=== PATIENT | female | born 1940 | race Caucasian/White ===

== ENCOUNTER 2017-02-19 19:08 | Emergency (ER) | payer OTHER, BC ==
[2017-02-19 19:20] VITALS: BMI 35.7
[2017-02-19] MEDS ORDERED: SODIUM CHLORIDE 1,000 ML IV STA (19:53)
[2017-02-19] MEDS ORDERED: diazePAM CARPU-JECT 10 MG/2 ML DISP.SYRIN IVPUSH ONE (19:54)
--- NOTE | 2017-02-19 20:08 | PDOC ---
History of Present Illness - General Chief Complaint: Pain, Acute Stated Complaint: RIGHT SIDE PAIN Time Seen by Provider: 02/19/17 19:45 History Source: Patient Exam Limitations: No Limitations - History of Present Illness Initial Comments: 02/19/17 19:57 76yo Female patient w/ PmHx: TIA, HLD presents to ED c/o left flank pain. Patient states symptoms began on Monday of last week and progressively worsened today. Family state patient received new furniture this past week and has been moving items around. But patient denies back injury. Patient denies n/v /d, cough, trauma, fall, dysuria, fever, diff breathing or any other complaints at this time. Occurred: reports: last week. denies: just prior to arrival, this morning, this afternoon, this evening, yesterday, other Severity: reports: moderate. denies: mild, severe Pain Location: reports: back. denies: none, abdomen, chest, face, head, lower extremity, mouth, neck, other, pelvis, upper extremity Method of Injury: No: unknown, assault, direct blow, fall, motor vehicle crash, other Modifying Factors: worse with: None, cold therapy, immobilization, pain medication, rest, other Associated Symptoms (Fall): shortness of breath Past History - Travel Traveled outside of the country in the last 30 days: No Close contact w/someone who was outside of country & ill: No - Past Medical History Allergies/Adverse Reactions: Allergies Allergy/AdvReac Type Severity Reaction Status Date / Time banana [Banana] Allergy Mild Vomiting Verified 02/19/17 19:20 Iodinated Contrast- Oral and Allergy Verified 02/19/17 19:20 IV Dye [Iodinated Contrast Media - IV Dye] Sulfa (Sulfonamide Allergy Verified 02/19/17 19:20 Antibiotics) [Sulfa(Sulfonamide Antibiotics)] Home Medications: Ambulatory Orders Aspirin [ASA -] 81 mg PO DAILY #0 tab.chew 09/27/14 Rosuvastatin Calcium [Crestor] 20 mg PO DAILY 06/08/15 Ciprofloxacin [Cipro -] 500 mg PO Q12H #14 tablet 03/05/16 Ibuprofen [Motrin -] 800 mg PO Q6H #20 tablet 03/05/16 Azithromycin [Zithromax -] 250 mg PO UTDICT #6 tab 11/24/16 Guaifenesin AC [Robitussin AC -] 5 ml PO TID #100 liquid MDD 20 cc 06/16/16 Pseudoephedrine HCl [Sudafed] 30 mg PO Q6H #14 tablet 06/16/16 Cephalexin [Keflex] 500 mg PO Q8H #21 capsule 02/19/17 Phenazopyridine HCl [Pyridium] 100 mg PO TID #6 tablet 02/19/17 Asthma: Yes CVA: Yes ("mini") Hypercholesterolemia: Yes Kidney Stones: Yes Suicide Attempt (Hx): No - Immunization History Immunization Up to Date: Yes - Psycho/Social/Smoking Cessation Hx Anxiety: No Suicidal Ideation: No Smoking Status: No Smoking History: Never smoked Have you smoked in the past 12 months: No Number of Cigarettes Smoked Daily: 0 If you are a former smoker, when did you quit?: 50 years Information on smoking cessation initiated: No Hx Alcohol Use: No Drug/Substance Use Hx: No Substance Use Type: None Hx Substance Use Treatment: No Trauma Specific PMHX - Complaint Specific PMHX Arthritis: No Back Injury: No Neck Injury: No Hx Sacro Iliac Joint Dysfunction: No Review of Systems - Review of Systems Able to Perform ROS?: Yes Is the patient limited Sudanese proficient: No Constitutional: No: Chills, Fever Respiratory: Yes: Shortness of Breath. No: Cough, Stridor, Wheezing Cardiac (ROS): No: Chest Pain, Palpitations, Chest Tightness ABD/GI: No: Constipated, Diarrhea, Nausea, Poor Appetite, Poor Fluid Intake, Vomiting : Yes: Flank Pain. No: Burning, Dysuria, Hematuria Musculoskeletal: Yes: Back Pain. No: Joint Pain, Neck Pain Integumentary: No: Bruising, Erythema, Rash Neurological: No: Headache, Seizure, Weakness, Dizziness All Other Systems: Reviewed and Negative *Physical Exam - Vital Signs Last Vital Signs Temp Pulse Resp BP Pulse Ox 98.7 F 79 18 173/76 99 02/19/17 19:02/19/17 19:02/19/17 19:02/19/17 19:02/19/17 19:17 - Physical Exam General Appearance: Yes: Nourished, Appropriately Dressed, Moderate Distress. No: Apparent Distress, Mild Distress, Severe Distress Neck: positive: Trachea midline, Supple. negative: Decreased range of motion, Stridor, Lymphadenopathy (R), Lymphadenopathy (L) Respiratory/Chest: positive: Lungs Clear, Normal Breath Sounds. negative: Chest Tender, Respiratory Distress, Accessory Muscle Use, Labored Respiration, Rapid RR, Rhonchi, Stridor, Wheezing Cardiovascular: positive: Regular Rhythm, Regular Rate Gastrointestinal/Abdominal: positive: Normal Bowel Sounds, Soft. negative: Distended, Guarding, Rebound, Tenderness Musculoskeletal: positive: Normal Inspection, CVA Tenderness, CVA Tenderness (L) , Decreased Range of Motion, Muscle Spasm. negative: CVA Tenderness (R), Vertebral Tenderness Extremity: positive: Normal Capillary Refill, Normal Inspection, Normal Range of Motion. negative: Pedal Edema, Swelling, Calf Tenderness, Erythema, Inflammation Integumentary: positive: Normal Color, Dry, Warm Neurologic: positive: chief compliance officer II-XII NML intact, Fully Oriented, Alert, Normal Mood/ Affect, Normal Response, Motor Strength 11/25 ED Treatment Course - LABORATORY CBC & Chemistry Diagram: 02/19/17 20:00 02/19/17 21:06 *DC/Admit/Observation/Transfer Diagnosis at time of Disposition: Urinary tract infection Qualifiers: Urinary tract infection type: acute cystitis Hematuria presence: without hematuria Qualified Code(s): N30.00 - Acute cystitis without hematuria - Discharge Dispostion Disposition: HOME Condition at time of disposition: Stable Admit: No - Prescriptions Prescriptions: Cephalexin [Keflex] 500 mg PO Q8H #21 capsule Phenazopyridine HCl [Pyridium] 100 mg PO TID #6 tablet - Patient Instructions Printed Discharge Instructions: Urinary Tract Infection Additional Instructions: Follow up with Dr. Connell this week for further evaluation. Take medications as prescribed. Drink plenty fluids, cranberry juice. Return if symptoms worsen or fever, with nausea, vomiting, and back pain. Print Language: TELUGU
[2017-02-19 20:11] LABS: BASOPHIL 0.9 % (0-2.0); EOSINOPHIL 3.7 % (0-4.5); MCH 26.8 pg (25.7-33.7); MCHC 32.1 g/dl (32.0-36.0); MEAN CELL VOLUME 83.3 fl (80-96); MEAN PLT VOLUME 8.6 fl (7.5-11.1); NEUTROPHILS 59.8 % (42.8-82.8); RDW 14.3 % (11.6-15.6); WHITE BLOOD COUNT 8.1 K/mm3 (4.0-10.0)
[2017-02-19] MEDS ORDERED: diazePAM CARPU-JECT 10 MG/2 ML DISP.SYRIN ONE (20:15)
[2017-02-19 20:35] LABS: URINE APPEARANCE CLOUDY; URINE BILIRUBIN NEGATIVE (NEGATIVE); URINE BLOOD NEGATIVE (NEGATIVE); URINE COLOR YELLOW; URINE GLUCOSE (UA) NEGATIVE (NEGATIVE); URINE KETONE NEGATIVE (NEGATIVE); URINE NITRITE NEGATIVE (NEGATIVE); URINE PROTEIN NEGATIVE (NEGATIVE); URINE UROBILINOGEN NEGATIVE mg/dL (0.2-1.0)
[2017-02-19 20:40] LABS: URINE LEUK ESTERASE 2+ (NEGATIVE)
[2017-02-19 20:41] LABS: GRANULAR CASTS 19 /lpf; URINE MUCUS RARE; URINE RBC 37 /hpf (0-3); URINE WBC 87 /hpf (3-5); YEAST FEW
[2017-02-19 20:56] LABS: PLATELET COMMENT2 UNABLE TO ENUMERATE
[2017-02-19 21:41] LABS: ALBUMIN 3.6 g/dl (3.4-5.0); ANION GAP 6 (8-16); BILIRUBIN,TOTAL 0.4 mg/dL (0.2-1.0); CALCIUM 8.6 mg/dL (8.5-10.1); CO2 28 mmol/L (21-32); GLUCOSE,RANDOM 88 mg/dL (74-106); SGOT/AST 14 U/L (15-37); SGPT/ALT 17 U/L (12-78); TOT PROT 6.2 g/dl (6.4-8.2)
[2017-02-19 21:42] LABS: ALK PHOS 54 U/L (45-117)
[2017-02-19] MEDS ORDERED: CEPHALEXIN MONOHYDRATE 500 MG CAPSULE (UD) PO ONE (21:58)
[2017-02-19] MEDS ORDERED: PHENAZOPYRIDINE HCL 100 MG TABLET (FP) PO ONE (22:00)
[2017-02-19] MEDS ORDERED: CEPHALEXIN MONOHYDRATE 250 MG CAPSULE (FP) ONE (22:02)
[2017-02-19] MEDS ORDERED: PHENAZOPYRIDINE HCL 100 MG TABLET (FP) ONE (22:02)
[2017-02-19 22:16] VITALS: BP 150/71; PULSE 70; TEMP 98
== END 2017-02-19 22:16 | disposition home or self-care (01) ==
LOC: JER 19:08
PROC: 3E033NZ Introduction of Analgesics, Hypnotics, Sedatives into Peripheral Vein, Percutaneous Approach (ICD-10-PCS; principal; 2017-02-19)
DX: N30.00 Acute cystitis without hematuria (principal); J45.909 Unspecified asthma, uncomplicated; Z86.73 Personal history of transient ischemic attack (TIA), and cerebral infarction without residual deficits; Z87.442 Personal history of urinary calculi
CPT/HCPCS: 36415; 80053; 81003; 81015; 85025; 87086; 96374; 99282-25

== ENCOUNTER 2017-06-19 09:12 | Observation (INO) | payer OTHER, BC ==
[2017-06-19 09:18] VITALS: BMI 36.1
[2017-06-19 10:06] LABS: BASOPHIL 0.8 % (0-2.0); EOSINOPHIL 3.6 % (0-4.5); MCH 27.2 pg (25.7-33.7); MCHC 32.4 g/dl (32.0-36.0); MEAN CELL VOLUME 83.9 fl (80-96); MEAN PLT VOLUME 8.1 fl (7.5-11.1); NEUTROPHILS 65.3 % (42.8-82.8); PLATELET COUNT 251 K/MM3 (134-434); RDW 14.1 % (11.6-15.6); WHITE BLOOD COUNT 6.5 K/mm3 (4.0-10.0)
[2017-06-19 10:22] LABS: INR 0.96 (0.82-1.09); PROTHROMBIN TIME (PATIENT) 10.8 SEC (9.98-11.88)
--- NOTE | 2017-06-19 10:27 | PDOC ---
History of Present Illness - History of Present Illness Initial Comments: 06/19/17 10:45 76 year old female, with significant past medical history of asthma, HTN, TIA, who presents to the emergency room complaining of 5 days of SOB and chest tightness on exertion. The patient describes the left sided chest tightness as pressure like someone is pushing on her chest that intermittently radiates to the left shoulder and left side of the neck. The pain is worse with walking and is exacerbated when taking a deep breath. She notes that the shortness of breath is different than the difficulty breathing she experiences secondary to asthma. She denies leg swelling, and recent travel. She denies recent illness. Denies fever, chills, nausea, vomiting. Denies wheezing. Allergies: iodinated contrast - Oral and IV PCP: Dr. Cox Wheel Press Operator: Dr. Strauss <Micheline Caraballo - Last Filed: 06/19/17 10:45> - General History Source: Patient, Old Records Exam Limitations: No Limitations <Amandeep Mendoza - Last Filed: 06/19/17 11:28> - General Chief Complaint: Chest Pain Stated Complaint: SOB/left side chest pain Time Seen by Provider: 06/19/17 09:32 Past History <Micheline Caraballo - Last Filed: 06/19/17 10:45> - Past Medical History Asthma: Yes CVA: Yes ("mini") COPD: No Hypercholesterolemia: Yes Kidney Stones: Yes - Immunization History Immunization Up to Date: Yes - Suicide/Smoking/Psychosocial Hx Smoking Status: No Smoking History: Never smoked Have you smoked in the past 12 months: No Number of Cigarettes Smoked Daily: 0 If you are a former smoker, when did you quit?: 50 years Information on smoking cessation initiated: No Hx Alcohol Use: No Drug/Substance Use Hx: No Substance Use Type: None Hx Substance Use Treatment: No <Amandeep Mendoza - Last Filed: 06/19/17 11:28> - Past Medical History Allergies/Adverse Reactions: Allergies Allergy/AdvReac Type Severity Reaction Status Date / Time banana [Banana] Allergy Mild Vomiting Verified 06/19/17 09:18 Iodinated Contrast- Oral and Allergy Verified 06/19/17 09:18 IV Dye [Iodinated Contrast Media - IV Dye] Sulfa (Sulfonamide Allergy Verified 06/19/17 09:18 Antibiotics) [Sulfa(Sulfonamide Antibiotics)] Home Medications: Ambulatory Orders Aspirin [ASA -] 81 mg PO DAILY #0 tab.chew 09/27/14 Rosuvastatin Calcium [Crestor] 20 mg PO DAILY 06/08/15 Ciprofloxacin [Cipro -] 500 mg PO Q12H #14 tablet 03/05/16 Ibuprofen [Motrin -] 800 mg PO Q6H #20 tablet 03/05/16 Azithromycin [Zithromax -] 250 mg PO UTDICT #6 tab 06/16/16 Guaifenesin AC [Robitussin AC -] 5 ml PO TID #100 liquid MDD 20 cc 06/16/16 Pseudoephedrine HCl [Sudafed] 30 mg PO Q6H #14 tablet 06/16/16 Cephalexin [Keflex] 500 mg PO Q8H #21 capsule 02/19/17 Phenazopyridine HCl [Pyridium] 100 mg PO TID #6 tablet 02/19/17 Review of Systems - Review of Systems Able to Perform ROS?: Yes Comments:: 06/19/17 10:45 GENERAL/CONSTITUTIONAL: No fever or chills. No weakness. HEAD, EYES, EARS, NOSE AND THROAT: No change in vision. No ear pain or discharge. No sore throat. CARDIOVASCULAR: +chest pain, SOB on exertion. RESPIRATORY: No cough, wheezing, or hemoptysis. GASTROINTESTINAL: No nausea, vomiting, diarrhea or constipation. GENITOURINARY: No dysuria, frequency, or change in urination. MUSCULOSKELETAL: No joint or muscle swelling or pain. SKIN: No rash NEUROLOGIC: No headache, vertigo, loss of consciousness, or change in strength/ sensation. ENDOCRINE: No increased thirst. No abnormal weight change. HEMATOLOGIC/LYMPHATIC: No anemia, easy bleeding, or history of blood clots. ALLERGIC/IMMUNOLOGIC: No hives or skin allergy. <Micheline Caraballo - Last Filed: 06/19/17 10:45> *Physical Exam - Vital Signs Last Vital Signs Temp Pulse Resp BP Pulse Ox 97.8 F 77 18 149/82 98 06/19/17 09:15 06/19/17 09:15 06/19/17 09:15 06/19/17 09:15 06/19/17 09:15 - Physical Exam Comments: 06/19/17 10:45 GENERAL: Awake, alert, and fully oriented, in no acute distress HEAD: No signs of trauma EYES: PERRLA, EOMI, sclera anicteric, conjunctiva clear ENT: Auricles normal inspection, hearing grossly normal, nares patent, oropharynx clear without exudates. Moist mucosa NECK: Normal ROM, supple, no lymphadenopathy, JVD, or masses LUNGS: Breath sounds equal, clear to auscultation bilaterally. No wheezes, and no crackles HEART: Regular rate and rhythm, normal S1 and S2, no murmurs, rubs or gallops ABDOMEN: Soft, nontender, normoactive bowel sounds. No guarding, no rebound. No masses EXTREMITIES: Normal range of motion, no edema. No clubbing or cyanosis. No cords, erythema, or tenderness NEUROLOGICAL: Cranial nerves II through XII grossly intact. Normal speech, normal gait SKIN: Warm, Dry, normal turgor, no rashes or lesions noted. <Micheline Caraballo - Last Filed: 06/19/17 10:45> - Vital Signs Last Vital Signs Temp Pulse Resp BP Pulse Ox 97.8 F 77 18 149/82 98 06/19/17 09:15 06/19/17 09:15 06/19/17 09:15 06/19/17 09:15 06/19/17 09:15 <Amandeep Mendoza - Last Filed: 06/19/17 11:28> Heart Score/ECG Review - History History: Highly suspicious - Electrocardiogram EKG: Non specific repolarization disturbance - Age Age: >/= 65 - Risk Factors Risk Factors Heart Score: Yes Hx Hypercholesterolemia, Yes Hx Hypertension, Yes Hx Obesity Based on the list above the patient has:: >/=3 risk factors or Hx atherosclerotic disease #1 ECG reviewed & interpreted by me at: 10:15 06/19/17 10:28 NSR 75, T wave flat III, avL, no robert/robert, QTC 455 msec <Amandeep Mendoza - Last Filed: 06/19/17 11:28> ED Treatment Course - LABORATORY CBC & Chemistry Diagram: 06/19/17 10:00 06/19/17 10:00 - ADDITIONAL ORDERS Additional order review: Laboratory Results 06/19/17 06/19/17 10:00 10:00 PT with INR 10.80 INR 0.96 PTT (Actin FS) 30.0 Sodium 142 Potassium 4.0 Chloride 108 H Carbon Dioxide 27 Anion Gap 7 L BUN 17 Creatinine 0.8 Creat Clearance w eGFR > 60 Random Glucose 99 Calcium 8.8 Magnesium 2.1 Total Bilirubin 1.0 D AST 13 L ALT 19 Alkaline Phosphatase 60 Creatine Kinase 102 Troponin I < 0.02 B-Natriuretic Peptide 225.09 Total Protein 7.1 Albumin 3.6 06/19/17 10:00 RBC 4.82 MCV 83.9 MCHC 32.4 RDW 14.1 MPV 8.1 Neutrophils % 65.3 Lymphocytes % 22.3 Monocytes % 8.0 Eosinophils % 3.6 Basophils % 0.8 <Micheline Caraballo - Last Filed: 06/19/17 10:45> - LABORATORY CBC & Chemistry Diagram: 06/19/17 10:00 06/19/17 10:00 - ADDITIONAL ORDERS Additional order review: 06/19/17 10:00 RBC 4.82 MCV 83.9 MCHC 32.4 RDW 14.1 MPV 8.1 Neutrophils % 65.3 Lymphocytes % 22.3 Monocytes % 8.0 Eosinophils % 3.6 Basophils % 0.8 - RADIOLOGY Radiology Studies Ordered: Category Date Time Status CHEST X-RAY PORTABLE* [RAD] Stat Radiology 06/19/17 09:33 Taken <Amandeep Mendoza - Last Filed: 06/19/17 11:28> Medical Decision Making - Medical Decision Making 06/19/17 10:26 A portion of this note was documented by scribe services under my direction. I have reviewed the details of the note, within reason, and agree with the documentation with the following case summary and management plan written by me. Patient treated in the ED. Nursing notes are reviewed and incorporated into the medical decision-making. Vital signs reviewed. Peripheral IV access obtained by the nurse, laboratory studies are drawn and sent, reviewed and interpreted by myself. Vital Signs Temp Pulse Resp BP Pulse Ox 97.8 F 77 18 149/82 98 06/19/17 09:15 06/19/17 09:15 06/19/17 09:15 06/19/17 09:15 06/19/17 09:15 76 year old female with past medical history of TIA, hypertension, hyperlipidemia presents with 4 days of left sternal chest pressure with radiation to left shoulder and associated dyspnea on exertion. Last echocardiogram April reportedly negative. Last stress test in 2013. Patient typically sees electric serviceman Dr. Strauss. We'll need to rule out myocardial infarction. We'll obtain chest x-ray, labs and give aspirin. Ultimate, patient admitted to the hospital for further workup and evaluation. 06/19/17 11:26 CBC, BMP 06/19/17 10:00 06/19/17 10:00 CMP Sodium 142 mmol/L (136-145) 06/19/17 10:00 Potassium 4.0 mmol/L (3.5-5.1) 06/19/17 10:00 Chloride 108 mmol/L (98-107) H 06/19/17 10:00 Carbon Dioxide 27 mmol/L (21-32) 06/19/17 10:00 Anion Gap 7 (8-16) L 06/19/17 10:00 BUN 17 mg/dL (7-18) 06/19/17 10:00 Creatinine 0.8 mg/dL (0.55-1.02) 06/19/17 10:00 Creat Clearance w eGFR > 60 (>60) 06/19/17 10:00 Random Glucose 99 mg/dL (74-106) 06/19/17 10:00 Calcium 8.8 mg/dL (8.5-10.1) 06/19/17 10:00 Magnesium 2.1 mg/dL (1.8-2.4) 06/19/17 10:00 Total Bilirubin 1.0 mg/dL (0.2-1.0) D 06/19/17 10:00 AST 13 U/L (15-37) L 06/19/17 10:00 ALT 19 U/L (12-78) 06/19/17 10:00 Alkaline Phosphatase 60 U/L (45-117) 06/19/17 10:00 Creatine Kinase 102 IU/L (26-192) 06/19/17 10:00 Troponin I < 0.02 ng/ml (0.00-0.05) 06/19/17 10:00 B-Natriuretic Peptide 225.09 pg/ml (5-450) 06/19/17 10:00 Total Protein 7.1 g/dl (6.4-8.2) 06/19/17 10:00 Albumin 3.6 g/dl (3.4-5.0) 06/19/17 10:00 Chest x-ray reviewed. No acute findings. Aspirin ordered and given. Given the circumstances, decision made to admit the patient to hospital. I've spoken to Dr. Strauss (electric serviceman). Recommends stress test today. Case discussed with Dr. Atkins Case discussed in detail with admitting physician including history, physical exam and ancillary studies. Admitting physician has assumed care for the patient, will follow all pending diagnostics and will complete the evaluation and treatment. <Amandeep Mendoza - Last Filed: 06/19/17 11:28> *DC/Admit/Observation/Transfer - Attestations Scribe Attestion: 06/19/17 10:46 Documentation prepared by BERNIE Ding, acting as medical affairs specialist for Amandeep Mendoza MD. <Micheline Caraballo - Last Filed: 06/19/17 10:45> - Discharge Dispostion Admit: Yes <Amandeep Mendoza - Last Filed: 06/19/17 11:28> Diagnosis at time of Disposition: Chest pain Qualifiers: Chest pain type: unspecified Qualified Code(s): R07.9 - Chest pain, unspecified - Discharge Dispostion Condition at time of disposition: Stable - Referrals Referrals: Tamiko Cox MD [Primary Care Provider] - - Patient Instructions - Post Discharge Activity
[2017-06-19 10:30] LABS: ALBUMIN 3.6 g/dl (3.4-5.0); ANION GAP 7 (8-16); CALCIUM 8.8 mg/dL (8.5-10.1); CO2 27 mmol/L (21-32); CREATININE 0.8 mg/dL (0.55-1.02); GLUCOSE,RANDOM 99 mg/dL (74-106); MAGNESIUM 2.1 mg/dL (1.8-2.4); SGOT/AST 13 U/L (15-37); SGPT/ALT 19 U/L (12-78); TOT PROT 7.1 g/dl (6.4-8.2)
[2017-06-19 10:33] LABS: ALK PHOS 60 U/L (45-117); CPK 102 IU/L (26-192); TROPONIN I < 0.02 ng/ml (0.00-0.05)
[2017-06-19] MEDS ORDERED: ASPIRIN 81 MG CHEWABLE TABLETS PO SCH (11:00)
[2017-06-19] MEDS ORDERED: ASPIRIN 81 MG CHEWABLE TABLETS ONE (11:15)
--- NOTE | 2017-06-19 11:48 | HP ---
Admitting History and Physical - Admission Chief Complaint: sob and chest discomfort for 4 days History of Present Illness: 06/19/17 10:45 76 year old female, with significant past medical history of asthma, HTN, TIA, who presents to the emergency room complaining of 5 days of SOB and chest tightness on exertion. The patient describes the left sided chest tightness as pressure like someone is pushing on her chest that intermittently radiates to the left shoulder and left side of the neck. The pain is worse with walking and is exacerbated when taking a deep breath. She notes that the shortness of breath is different than the difficulty breathing she experiences secondary to asthma. She denies leg swelling, and recent travel. She denies recent illness. Denies fever, chills, nausea, vomiting. Denies wheezing. Allergies: iodinated contrast - Oral and IV PCP: Dr. Cxo Telephone Order Clerk Room Service: Dr. 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 Cardiovascular: Yes: HTN, Hyperlipdemia - Smoking History Smoking history: Never smoked Have you smoked in the past 12 months: No Aproximately how many cigarettes per day: 0 If you are a former smoker, when did you quit?: 50 years - Alcohol/Substance Use Hx Alcohol Use: No Home Medications - Allergies Allergies/Adverse Reactions: Allergies Allergy/AdvReac Type Severity Reaction Status Date / Time banana [Banana] Allergy Mild Vomiting Verified 06/19/17 09:18 Iodinated Contrast- Oral and Allergy Verified 06/19/17 09:18 IV Dye [Iodinated Contrast Media - IV Dye] Sulfa (Sulfonamide Allergy Verified 06/19/17 09:18 Antibiotics) [Sulfa(Sulfonamide Antibiotics)] - Home Medications Home Medications: Ambulatory Orders Aspirin [ASA -] 81 mg PO DAILY #0 tab.chew 09/27/14 Rosuvastatin Calcium [Crestor] 20 mg PO DAILY 06/08/15 Ciprofloxacin [Cipro -] 500 mg PO Q12H #14 tablet 03/05/16 Ibuprofen [Motrin -] 800 mg PO Q6H #20 tablet 03/05/16 Azithromycin [Zithromax -] 250 mg PO UTDICT #6 tab 06/16/16 Guaifenesin AC [Robitussin AC -] 5 ml PO TID #100 liquid MDD 20 cc 06/16/16 Pseudoephedrine HCl [Sudafed] 30 mg PO Q6H #14 tablet 06/16/16 Cephalexin [Keflex] 500 mg PO Q8H #21 capsule 02/19/17 Phenazopyridine HCl [Pyridium] 100 mg PO TID #6 tablet 02/19/17 Review of Systems - Review of Systems Cardiovascular: reports: Chest Pain (on deep inspiration) Physical Examination Vital Signs: Vital Signs Temperature 97.8 F 06/19/17 09:15 Pulse Rate 77 06/19/17 09:15 Respiratory Rate 18 06/19/17 09:15 Blood Pressure 149/82 06/19/17 09:15 O2 Sat by Pulse Oximetry (%) 98 06/19/17 09:15 Constitutional: Yes: Calm Neck: Yes: Trachea Midline Cardiovascular: Yes: Regular Rate and Rhythm, S1, S2 Respiratory: Yes: CTA Bilaterally Gastrointestinal: Yes: Normal Bowel Sounds, Soft Edema: No Neurological: Yes: Alert Labs: CBC, BMP 06/19/17 10:00 06/19/17 10:00 Imaging - Results Chest X-ray: Report Reviewed Problem List - Problems (1) Atypical chest pain Assessment/Plan: observation telemetry trend CE ekg stress test cardio consult aspirin Code(s): R07.89 - OTHER CHEST PAIN (2) HLD (hyperlipidemia) Assessment/Plan: lipid panel rosuvastatin Code(s): E78.5 - HYPERLIPIDEMIA, UNSPECIFIED (3) HTN (hypertension) Assessment/Plan: monitor BP Code(s): I10 - ESSENTIAL (PRIMARY) HYPERTENSION
--- NOTE | 2017-06-19 13:36 | EKG ---
Test Reason : Blood Pressure : / mmHG Vent. Rate : 074 BPM Atrial Rate : 074 BPM P-R Int : 160 ms QRS Dur : 072 ms QT Int : 382 ms P-R-T Axes : 060 012 027 degrees QTc Int : 424 ms NORMAL SINUS RHYTHM NORMAL ECG WHEN COMPARED WITH ECG OF 26-SEP-2014 23:46, NO SIGNIFICANT CHANGE WAS FOUND Confirmed by OVI HAGEN MD ([id number]) on 06/19/2017 1:36:13 PM Referred By: Confirmed By:OVI HAGEN MD
[2017-06-19 15:02] LABS: URINE APPEARANCE CLOUDY; URINE BILIRUBIN NEGATIVE (NEGATIVE); URINE BLOOD NEGATIVE (NEGATIVE); URINE GLUCOSE (UA) NEGATIVE (NEGATIVE); URINE KETONE TRACE (NEGATIVE); URINE NITRITE NEGATIVE (NEGATIVE); URINE PROTEIN NEGATIVE (NEGATIVE); URINE UROBILINOGEN NEGATIVE mg/dL (0.2-1.0)
[2017-06-19 15:04] LABS: URINE COLOR DK YELLOW
[2017-06-19 16:56] LABS: URINE LEUK ESTERASE Negative (NEGATIVE)
[2017-06-19 16:59] LABS: CPK 97 IU/L (26-192); TROPONIN I < 0.02 ng/ml (0.00-0.05)
--- NOTE | 2017-06-19 20:24 | CON.CARD ---
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 Cardio/Vascular: Yes: HTN, Hyperlipdemia - Alcohol/Substance Use Hx Alcohol Use: No - Smoking History Smoking history: Never smoked Have you smoked in the past 12 months: No Aproximately how many cigarettes per day: 0 If you are a former smoker, when did you quit?: 50 years <Morris Strauss - Last Filed: 06/19/17 20:24> - History of Present Illness History of Present Illness: Chief Complaint: Chest pain 76 year old AA female, with history of hypercholesterolemia, admitted with 2 weeks history of left sided pressure like chest discomfort, accompanied by shortness of breath and would occur both at rest and with exertion. For the past 1 and 1/2 weeks she has been experiencing exertional left sided discomfort with exertion and radiating to the left upper extremity. She also complained of exertional dyspnea associated with chest discomfort. Symptoms recently became more frequent and prior to admission she had an episode that was more pronounced and forced her to stop. She started to walk and the chest discomfort came back till she reached home. Patient states that she was recently found to have elevated blood pressure. No history of PND or orthopnea. No history of palpitations, lightheadedness, dizziness or syncope. No history of diabetes mellitus. Patient states that she did lift some heavy objects over and has been complaining of left lateral and left posterior upper arm discomfort with movement. Past History: Hypercholesterolemia. Surgical history: 1. S/P tonsillectomy 2. S/P hysterectomy Social history: , has a living daughter, 2 children related to automobile accident and the second one apparently due to in hospital drug overdose. Patient smoked from age 13 to 40. 2 packs of cigarettes per day. Has a social drink. Family history: Father at the age of 100 of natural causes. Mother at age 94 apparently due to complications of carcinoma (uncertain type). Allergies: Banana, oral contrast, sulfa Home Medication List 1. Crestor 20 mg PO daily. Generic Name Dose Route Start Last Admin Trade Name Freq PRN Reason Stop Dose Admin Aspirin 162 mg 06/19/17 11:00 06/19/17 11:15 Asa - PO 162 mg DAILY RO Administration Aspirin 81 mg 06/20/17 10:00 Asa - PO DAILY RO Rosuvastatin Calcium 20 mg 06/19/17 22:00 Crestor - PO HS [facility] Review of Systems: Constitutional: No history of chills, fever or night sweats. No history of unintentional weight loss. HEENT: No history of headaches, diplopia, blurred vision. No history of epistaxis or hoarsness. No tinnitus. Cardiovascular: See history of present illness. Respiratory: No history of cough, expectoration of hemoptysis, no history of tuberculosis. GI: See history of present illness. No history of nausea, vomiting, melena, or hematemesis. No history of abdominal pain or discomfort. 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 No history of focal weakness. Endocrine: No history of polyuria or polydipsia. No history of intolerance to cold or warm weather. Musculoskeletal: Arthrilgias or history of myalgia. : No history of frequency or hematuria. HEME: No history of bleeding, anemia or ecchymosis. O: 76 year old obese female, was in no distress, no pallor, no cyanosis, clubbing or jaundice. Last Vital Signs Temp Pulse Resp BP Pulse Ox 98.3 F 73 18 135/70 100 06/19/17 20:30 06/19/17 20:30 06/19/17 20:30 06/19/17 20:30 06/19/17 14:31 Neck: Supple, no JVD, negative HJR, carotids were equal and upstrokes were normal, no thyromegaly appreciated. Heart: PMI was in the 5th intercostal space, no heaves or thrills, S1 and S2 were normal. Ejection systolic murmur grade II/ heard at the second right intercoastal space. No diastolic murmur or gallops were heard. Lungs: Clear on auscultation bilaterally. Chest: Point tenderness involving the left mid axillary line. Abdomen: Soft, nontender, no hepatosplenomegaly appreciated, and no palpable masses were felt. Extremities: No calf tenderness or dependent edema. Pulses are normal. Tenderness posterior aspect of the upper forearm on movement and palpation. EC06/19/17 Initial ECG 9:20am Baseline artifact with aVF missing. Sinus rhythm with non specific ST changes. Lab Data: CBCD WBC 6.5 K/mm3 (4.0-10.0) 06/19/17 10:00 RBC 4.82 M/mm3 (3.60-5.2) 06/19/17 10:00 Hgb 13.1 GM/dL (10.7-15.3) 06/19/17 10:00 Hct 40.4 % (32.4-45.2) 06/19/17 10:00 MCV 83.9 fl (80-96) 06/19/17 10:00 MCHC 32.4 g/dl (32.0-36.0) 06/19/17 10:00 RDW 14.1 % (11.6-15.6) 06/19/17 10:00 Plt Count 251 K/MM3 (134-434) 06/19/17 10:00 MPV 8.1 fl (7.5-11.1) 06/19/17 10:00 CMP Sodium 142 mmol/L (136-145) 06/19/17 10:00 Potassium 4.0 mmol/L (3.5-5.1) 06/19/17 10:00 Chloride 108 mmol/L (98-107) H 06/19/17 10:00 Carbon Dioxide 27 mmol/L (21-32) 06/19/17 10:00 Anion Gap 7 (8-16) L 06/19/17 10:00 BUN 17 mg/dL (7-18) 06/19/17 10:00 Creatinine 0.8 mg/dL (0.55-1.02) 06/19/17 10:00 Creat Clearance w eGFR > 60 (>60) 06/19/17 10:00 Calcium 8.8 mg/dL (8.5-10.1) 06/19/17 10:00 Total Bilirubin 1.0 mg/dL (0.2-1.0) D 06/19/17 10:00 AST 13 U/L (15-37) L 06/19/17 10:00 ALT 19 U/L (12-78) 06/19/17 10:00 Alkaline Phosphatase 60 U/L (45-117) 06/19/17 10:00 Total Protein 7.1 g/dl (6.4-8.2) 06/19/17 10:00 Albumin 3.6 g/dl (3.4-5.0) 06/19/17 10:00 Troponin < 0.02 06/19/17 A: 1. Chest pain syndrome, compatible with coronary artery disease, angina pectoris. 2. Hypercholesterolemia. 3. Systolic murmur compatible with aortic valve sclerosis. 4. Localized left axillary and upper extremity discomfort with movement and palpation, etiology most likely musculoskeletal. Recommendation: 1. Awaiting myoview stress test. 2. Echocardiogram. 3. Evaluation of left arm discomfort with movement (exertional chest pain proceeded the arm pain). 4. Further suggestions after evaluation of the above mentioned tests. Prognosis: Guarded Attestation: Documentation prepared by Isai Garcia, acting as medical dosimetrist for Morris Strauss MD. <Isai Garcia - Last Filed: 06/19/17 20:47> Home Medications <Morris Strauss H - Last Filed: 06/19/17 20:24> <Isai Garcia - Last Filed: 06/19/17 20:47> - Allergies Allergies/Adverse Reactions: Allergies Allergy/AdvReac Type Severity Reaction Status Date / Time banana [Banana] Allergy Mild Vomiting Verified 06/19/17 09:18 Iodinated Contrast- Oral and Allergy Verified 06/19/17 09:18 IV Dye [Iodinated Contrast Media - IV Dye] Sulfa (Sulfonamide Allergy Verified 06/19/17 09:18 Antibiotics) [Sulfa(Sulfonamide Antibiotics)] - Home Medications Home Medications: Ambulatory Orders Aspirin [ASA -] 81 mg PO DAILY #0 tab.chew 09/27/14 Rosuvastatin Calcium [Crestor] 20 mg PO DAILY 06/08/15 Vital Signs: Vital Signs Temperature 97.8 F 06/19/17 09:15 Pulse Rate 62 06/19/17 14:31 Respiratory Rate 20 06/19/17 14:31 Blood Pressure 150/63 06/19/17 14:31 O2 Sat by Pulse Oximetry (%) 100 06/19/17 14:31 - Other Data Labs, Other Data: CBC, BMP 06/19/17 10:00 06/19/17 10:00 INR, PTT INR 0.96 (0.82-1.09) 06/19/17 10:00 Troponin, BNP 06/19/17 06/19/17 10:00 16:15 Troponin I < 0.02 < 0.02 B-Natriuretic Peptide 225.09 Troponin, BNP 06/19/17 06/19/17 10:00 16:15 Troponin I < 0.02 < 0.02 B-Natriuretic Peptide 225.09 <Morris Strauss - Last Filed: 06/19/17 20:24> Vital Signs: Vital Signs Temperature 97.8 F 06/19/17 09:15 Pulse Rate 62 06/19/17 14:31 Respiratory Rate 20 06/19/17 14:31 Blood Pressure 150/63 06/19/17 14:31 O2 Sat by Pulse Oximetry (%) 100 06/19/17 14:31 - Other Data Labs, Other Data: CBC, BMP 06/19/17 10:00 06/19/17 10:00 INR, PTT INR 0.96 (0.82-1.09) 06/19/17 10:00 Troponin, BNP 06/19/17 06/19/17 10:00 16:15 Troponin I < 0.02 < 0.02 B-Natriuretic Peptide 225.09 Troponin, BNP 06/19/17 06/19/17 10:00 16:15 Troponin I < 0.02 < 0.02 B-Natriuretic Peptide 225.09 <Isai Garcia - Last Filed: 06/19/17 20:47>
[2017-06-19] MEDS: ROSUVASTATIN CA 20 MG TABLET (FP) PO SCH (21:47)
[2017-06-20 07:16] LABS: ANION GAP 8 (8-16); BILIRUBIN,TOTAL 0.7 mg/dL (0.2-1.0); CALCIUM 8.3 mg/dL (8.5-10.1); CO2 25 mmol/L (21-32); CREATININE 0.6 mg/dL (0.55-1.02); GLUCOSE,RANDOM 82 mg/dL (74-106); SGOT/AST 10 U/L (15-37); SGPT/ALT 16 U/L (12-78); TOT PROT 5.9 g/dl (6.4-8.2)
[2017-06-20 07:24] LABS: ALK PHOS 49 U/L (45-117); TROPONIN I < 0.02 ng/ml (0.00-0.05)
[2017-06-20 07:35] LABS: BASOPHIL 1.1 % (0-2.0); EOSINOPHIL 5.8 % (0-4.5); MCH 27.5 pg (25.7-33.7); MCHC 33.1 g/dl (32.0-36.0); MEAN CELL VOLUME 82.9 fl (80-96); MEAN PLT VOLUME 8.7 fl (7.5-11.1); NEUTROPHILS 51.2 % (42.8-82.8); PLATELET COUNT 215 K/MM3 (134-434); RDW 13.5 % (11.6-15.6); WHITE BLOOD COUNT 4.7 K/mm3 (4.0-10.0)
[2017-06-20] MEDS ORDERED: amLODIPine BESYLATE 5 MG TABLET (FP) PO ONE (08:26)
--- NOTE | 2017-06-20 08:29 | PN ---
Progress Note, Physician History of Present Illness: INTERMITTENT CHEST HEAVINESS - Current Medication List Current Medications: Active Medications Amlodipine Besylate (Norvasc -) 5 mg PO ONCE ONE Stop: 06/20/17 08:27 Aspirin (Asa -) 81 mg PO DAILY RO Rosuvastatin Calcium (Crestor -) 20 mg PO HS RO Last Admin: 06/19/17 21:47 Dose: Not Given - Objective Vital Signs: Vital Signs Temperature 98.2 F 06/20/17 06:00 Pulse Rate 69 06/20/17 06:00 Respiratory Rate 19 06/20/17 06:00 Blood Pressure 132/74 06/20/17 06:00 O2 Sat by Pulse Oximetry (%) 98 06/19/17 22:00 Cardiovascular: Yes: Regular Rate and Rhythm Respiratory: Yes: Regular, CTA Bilaterally Gastrointestinal: Yes: Normal Bowel Sounds, Soft Labs: CBC, BMP 06/20/17 06:30 INR, PTT INR 0.96 (0.82-1.09) 06/19/17 10:00 Problem List - Problems (1) Chest pain Assessment/Plan: telemetry trend CE ekg stress test cardio consult noted and appreciated aspirin Code(s): R07.9 - CHEST PAIN, UNSPECIFIED Qualifiers: Chest pain type: unspecified Qualified Code(s): R07.9 - Chest pain, unspecified (2) HLD (hyperlipidemia) Assessment/Plan: on statin Code(s): E78.5 - HYPERLIPIDEMIA, UNSPECIFIED (3) HTN (hypertension) Assessment/Plan: give norvasc 5 mg x1 will decide on choice of meds after stress Code(s): I10 - ESSENTIAL (PRIMARY) HYPERTENSION
[2017-06-20 08:50] LABS: CHOLESTEROL 144 mg/dL (50-200)
[2017-06-20] MEDS: ASPIRIN 81 MG CHEWABLE TABLETS PO SCH (09:12)
--- NOTE | 2017-06-20 10:26 | EKG ---
Test Reason : Blood Pressure : / mmHG Vent. Rate : 059 BPM Atrial Rate : 059 BPM P-R Int : 168 ms QRS Dur : 084 ms QT Int : 428 ms P-R-T Axes : 045 016 015 degrees QTc Int : 423 ms SINUS BRADYCARDIA WITH PREMATURE ATRIAL COMPLEXES OTHERWISE NORMAL ECG WHEN COMPARED WITH ECG OF 19-JUN-2017 09:20, PREMATURE ATRIAL COMPLEXES ARE NOW PRESENT Confirmed by BARAK HONEYCUTT, TARIQ ([id number]) on 06/20/2017 10:26:22 AM Referred By: Norbert BURROUGHS Confirmed By:TARIQ CANCINO MD
[2017-06-20] MEDS ORDERED: DEXTROSE 5% IVPB ONE (10:30)
[2017-06-20] MEDS ORDERED: WATER IVPB ONE (10:30)
[2017-06-20] MEDS ORDERED: DIPYRIDAMOLE STRESS TEST IVPB ONE (10:30)
--- NOTE | 2017-06-20 11:37 | PN ---
Progress Note (short form) - Note Progress Note: 76 year AA female admitted with exertional chest pain associated with dyspnea, h/o of hypercholesterolemia. No recurrence of chest pain or discomfort since admission, scheduled fo myoview ETT. Active Medications Aspirin (Asa -) 81 mg PO DAILY [facility] Last Admin: 06/20/17 09:12 Dose: 81 mg Rosuvastatin Calcium (Crestor -) 20 mg PO HS [facility] Last Admin: 06/19/17 21:47 Dose: Not Given 76 year female in no distress, no pallor or cyanosis. Last Vital Signs Temp Pulse Resp BP Pulse Ox 98.3 F 63 18 141/72 98 06/20/17 08:00 06/20/17 08:00 06/20/17 08:00 06/20/17 08:00 06/19/17 22:00 NECK; Supple, no JVD, carotids equal, no bruits. HEART: PMI in the 5th ICS, S1 & S2 are normal, NASRA grade II/ at the 2nd ICS, ending in early space. No diastolic murmur or gallops heard. LUNGS: Clear on auscultation. Abdomen. Soft, obese and nontender. No organomegaly or masses felt. EXTREMITIES: No calf tenderness or dependent edema. CBC, BMP 06/20/17 06:30 06/20/17 06:30 Troponin, BNP 06/19/17 06/20/17 16:15 06:30 Troponin I < 0.02 < 0.02 A: 1. Chest pain syndrome compatible with CAD, angina pectoris. 2. Hypercholesterolemia. 3. Exogenous obesity. 4. Systolic murmur compatible with aortic valve sclerosis P: 1. Myoview ETT. 2. Echocardiogram. 3. Risk modifications. 4. Further suggestions will depend upon the results of the above mentiomed tests.
[2017-06-20] MEDS: ROSUVASTATIN CA 20 MG TABLET (FP) PO SCH (21:03)
--- NOTE | 2017-06-21 08:37 | DS ---
Physical Examination Vital Signs: Vital Signs Temperature 98.6 F 06/21/17 06:00 Pulse Rate 70 06/21/17 06:00 Respiratory Rate 18 06/21/17 06:00 Blood Pressure 118/73 06/21/17 06:00 O2 Sat by Pulse Oximetry (%) 99 06/20/17 21:00 Cardiovascular: Yes: Regular Rate and Rhythm Respiratory: Yes: Regular, CTA Bilaterally Gastrointestinal: Yes: Normal Bowel Sounds, Soft Labs: CBC, BMP 06/20/17 06:30 06/20/17 06:30 Discharge Summary Reason For Visit: CHEST PAIN Current Active Problems Chest pain (Acute) Hospital Course: 76 year old female, with significant past medical history of asthma, HTN, TIA, who presents to the emergency room complaining of 5 days of SOB and chest tightness on exertion. The patient describes the left sided chest tightness as pressure like someone is pushing on her chest that intermittently radiates to the left shoulder and left side of the neck. The pain is worse with walking and is exacerbated when taking a deep breath. She notes that the shortness of breath is different than the difficulty breathing she experiences secondary to asthma. She denies leg swelling, and recent travel. She denies recent illness. Denies fever, chills, nausea, vomiting. Denies wheezing. 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 Cardiovascular: Yes: HTN, Hyperlipdemia Pateint was admitted and cardiac enzymes were negative she was evaluated by cardiology and had stress test which showed mild ischemia pt doing well toprol was added and pt for dc home if cleared by cardio Condition: Improved - Instructions Referrals: Tamiko Cox MD [Primary Care Provider] - 2 Weeks Morris Strauss MD [Staff Physician] - Disposition: HOME - Home Medications Comprehensive Discharge Medication List: Ambulatory Orders Aspirin [ASA -] 81 mg PO DAILY #0 tab.chew 09/27/14 Rosuvastatin Calcium [Crestor] 20 mg PO DAILY 06/08/15 Metoprolol Succinate [Toprol XL -] 12.5 mg PO DAILY #30 tab.sr.24h 06/21/17
[2017-06-21] MEDS ORDERED: METOPROLOL SUCCINATE 25 MG TAB.SR.24H (FP) PO SCH (09:15)
[2017-06-21] MEDS: ASPIRIN 81 MG CHEWABLE TABLETS PO SCH (09:17)
[2017-06-21] MEDS ORDERED: METOPROLOL SUCCINATE 25 MG TAB.SR.24H (FP) PO ONE (13:30)
[2017-06-21 15:01] VITALS: BP 146/78; PULSE 81; TEMP 98.2
[2017-06-22] MEDS ORDERED: METOPROLOL SUCCINATE 25 MG TAB.SR.24H (FP) PO SCH (10:00)
== END 2017-06-21 17:51 | disposition home or self-care (01) ==
LOC: JER 09:12 → JERBED 11:29 → J4W 20:50
PROVIDERS: ADMIT Student in an Organized Health Care Education/Training Program; ATTEND Student in an Organized Health Care Education/Training Program
PROC: 3E033GC Introduction of Other Therapeutic Substance into Peripheral Vein, Percutaneous Approach (ICD-10-PCS; principal; 2017-06-19)
DX: R07.89 Other chest pain (principal); I10 Essential (primary) hypertension; E78.5 Hyperlipidemia, unspecified; J45.909 Unspecified asthma, uncomplicated; Z79.82 Long term (current) use of aspirin; Z87.442 Personal history of urinary calculi; Z86.73 Personal history of transient ischemic attack (TIA), and cerebral infarction without residual deficits; Z91.018 Allergy to other foods; Z88.2 Allergy status to sulfonamides; Z91.041 Radiographic dye allergy status; E66.09 Other obesity due to excess calories; Z68.36 Body mass index [BMI] 36.0-36.9, adult; R01.1 Cardiac murmur, unspecified
CPT/HCPCS: 36415; 71010-TC; 78452-TC; 80053; 80061; 81003; 82550; 83036; 83721; 83735; 83880; 84443; 84484; 85025; 85610; 85730; 93005; 93010; 93017; 93306-TC; 96374; 99284-25; A9502; C1887; G0378

== ENCOUNTER 2017-10-05 05:45 | Emergency (ER) | payer OTHER, BC ==
[2017-10-05 06:09] VITALS: BMI 32.0
--- NOTE | 2017-10-05 06:11 | PDOC ---
History of Present Illness - General Chief Complaint: Shortness of Breath Stated Complaint: SOB, HEADACHE Time Seen by Provider: 10/05/17 06:11 History Source: Patient - History of Present Illness Initial Comments: 10/05/17 06:26 76-year-old female complaining of chest discomfort, headache and shortness of breath upon awakening this morning. Patient reports that she has a history of hypertension, hypercholesterolemia, CVA, asthma as a child. Kidney stones.. She had a cardiac catheterization One week ago reports that she has 20% blockage in 2 arteries. Patient at this time reports chest discomfort and headache Past History - Past Medical History Allergies/Adverse Reactions: Allergies Allergy/AdvReac Type Severity Reaction Status Date / Time banana [Banana] Allergy Mild Vomiting Verified 10/05/17 06:06 Iodinated Contrast- Oral and Allergy Verified 10/05/17 06:06 IV Dye [Iodinated Contrast Media - IV Dye] Sulfa (Sulfonamide Allergy Verified 10/05/17 06:06 Antibiotics) [Sulfa(Sulfonamide Antibiotics)] Home Medications: Ambulatory Orders Aspirin [ASA -] 81 mg PO DAILY #0 tab.chew 09/27/14 Rosuvastatin Calcium [Crestor] 5 mg PO DAILY 06/08/15 Cholecalciferol (Vitamin D3) [Vitamin D3] 5,000 unit PO DAILY 09/12/17 Metoprolol Succinate [Toprol XL -] 50 mg PO DAILY 09/12/17 Ranolazine [Ranexa] 500 mg PO DAILY 09/12/17 Asthma: Yes CVA: Yes ("mini") COPD: No DVT: No Dementia: No HTN: Yes Hypercholesterolemia: Yes Kidney Stones: Yes - Immunization History Immunization Up to Date: Yes - Suicide/Smoking/Psychosocial Hx Smoking Status: No Smoking History: Never smoked Have you smoked in the past 12 months: No Number of Cigarettes Smoked Daily: 0 If you are a former smoker, when did you quit?: 30 years ago Information on smoking cessation initiated: No Hx Alcohol Use: No Drug/Substance Use Hx: No Substance Use Type: None Hx Substance Use Treatment: No Review of Systems - Review of Systems Able to Perform ROS?: Yes Is the patient limited Mohawk proficient: No Constitutional: No: Symptoms Reported, See HPI, Chills, Diaphoresis, Fever, Loss of Appetite, Malaise, Night Sweats, Weakness, Weight Stable, Unintentional Wgt. Loss, Unexplained wgt Loss, Other Respiratory: Yes: SOB at Rest. No: Symptoms reported, See HPI, Cough, Orthopnea , Shortness of Breath, SOB with Exertion, Stridor, Wheezing, Productive cough, Hemoptysis, Other Cardiac (ROS): Yes: Chest Pain. No: Symptoms Reported, See HPI, Edema, Irregular Heart Rate, Lightheadedness, Palpitations, Syncope, Chest Tightness, Other Neurological: Yes: Headache. No: Symptoms reported, See HPI, Numbness, Paresthesia, Pre-Existing Deficit, Seizure, Tingling, Tremors, Weakness, Unsteady Gait, Ataxia, Dizziness, Other *Physical Exam - Vital Signs Last Vital Signs Temp Pulse Resp BP Pulse Ox 99.2 F 68 18 130/64 100 10/05/17 06:06 10/05/17 06:06 10/05/17 06:06 10/05/17 06:06 10/05/17 06:06 - Physical Exam General Appearance: Yes: Appropriately Dressed HEENT: positive: Normal ENT Inspection Respiratory/Chest: positive: Lungs Clear, Normal Breath Sounds Cardiovascular: positive: Regular Rhythm, Regular Rate, S1, S2 Gastrointestinal/Abdominal: positive: Normal Bowel Sounds, Soft Musculoskeletal: positive: Normal Inspection Extremity: positive: Normal Capillary Refill, Normal Inspection, Normal Range of Motion Integumentary: positive: Normal Color, Dry, Warm Neurologic: 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: 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-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 NML intact, Fully Oriented, Alert, Normal Mood/ Affect, Normal Response, Motor Strength 5/5, Finger to Nose (intact) Heart Score/ECG Review - ECG Intrepretation Rhythm: Regular Rhythm Comment:: 10/05/17 06:32 NSR: 68bpm ED Treatment Course - LABORATORY CBC & Chemistry Diagram: 10/05/17 06:30 10/05/17 06:30 Medical Decision Making - Medical Decision Making 10/05/17 06:28 A: Chest pain P: CBC CMP cardiac enzymes chest xray EKG 10/05/17 07:06 patient signed out to Ileana BEEBE *DC/Admit/Observation/Transfer Diagnosis at time of Disposition: Chest pain Qualifiers: Chest pain type: unspecified Qualified Code(s): R07.9 - Chest pain, unspecified - Referrals - Patient Instructions - Post Discharge Activity
--- NOTE | 2017-10-05 06:44 | PDOC ---
*Physical Exam - Vital Signs Last Vital Signs Temp Pulse Resp BP Pulse Ox 99.2 F 68 18 130/64 100 10/05/17 06:06 10/05/17 06:06 10/05/17 06:06 10/05/17 06:06 10/05/17 06:06 ED Treatment Course - LABORATORY CBC & Chemistry Diagram: 10/05/17 06:30 10/05/17 06:30 Medical Decision Making - Medical Decision Making 10/05/17 06:43 agree with care from CONCEPCIÓN Cintron *DC/Admit/Observation/Transfer Diagnosis at time of Disposition: Chest pain Qualifiers: Chest pain type: unspecified Qualified Code(s): R07.9 - Chest pain, unspecified - Referrals - Patient Instructions - Post Discharge Activity
[2017-10-05 07:15] LABS: ALBUMIN 3.3 g/dl (3.4-5.0); ANION GAP 12 (8-16); BLOOD UREA NITROGEN 15 mg/dL (7-18); CALCIUM 8.7 mg/dL (8.5-10.1); CHLORIDE 111 mmol/L (98-107); CO2 21 mmol/L (21-32); GLUCOSE,RANDOM 95 mg/dL (74-106); MAGNESIUM 2.1 mg/dL (1.8-2.4); POTASSIUM 4.2 mmol/L (3.5-5.1); SODIUM 144 mmol/L (136-145)
[2017-10-05 07:16] LABS: INR 0.92 (0.82-1.09); PROTHROMBIN TIME (PATIENT) 10.4 SEC (9.98-11.88)
[2017-10-05 07:22] LABS: ALK PHOS 51 U/L (45-117); BILIRUBIN,TOTAL 0.6 mg/dL (0.2-1.0); SGOT/AST 17 U/L (15-37); SGPT/ALT 15 U/L (12-78); TOT PROT 6.4 g/dl (6.4-8.2)
[2017-10-05 07:28] LABS: BASO % 1.2 % (0-2.0); EOS % 6.2 % (0-4.5); HEMATOCRIT 35.9 % (32.4-45.2); LYMPH % 19.4 % (8-40); MCH 28.3 pg (25.7-33.7); MCHC 33.5 g/dl (32.0-36.0); MEAN CELL VOLUME 84.6 fl (80-96); MEAN PLT VOLUME 9.1 fl (7.5-11.1); MONO % 10.5 % (3.8-10.2); NEUT % 62.7 % (42.8-82.8); PLATELET COUNT 184 K/MM3 (134-434); RBC 4.24 M/mm3 (3.60-5.2); RDW 14.2 % (11.6-15.6); WHITE BLOOD COUNT 7.2 K/mm3 (4.0-10.0)
--- NOTE | 2017-10-05 08:18 | PDOC ---
*Physical Exam - Vital Signs Last Vital Signs Temp Pulse Resp BP Pulse Ox 99.2 F 68 18 130/64 100 10/05/17 06:06 10/05/17 06:06 10/05/17 06:06 10/05/17 06:06 10/05/17 06:06 Heart Score/ECG Review #2 General ECG Interpretation: Sinus Rhythm (sinus rhythm at 62.Noted PVC and PAC occasionally. No acute changes) ED Treatment Course - LABORATORY CBC & Chemistry Diagram: 10/05/17 06:30 10/05/17 06:30 - ADDITIONAL ORDERS Additional order review: Laboratory Results 10/05/17 10/05/17 06:30 06:30 PT with INR 10.40 INR 0.92 Sodium 144 Potassium 4.2 Chloride 111 H Carbon Dioxide 21 Anion Gap 12 BUN 15 Creatinine 1.0 Creat Clearance w eGFR 53.91 Random Glucose 95 Calcium 8.7 Magnesium 2.1 Total Bilirubin 0.6 D AST 17 ALT 15 Alkaline Phosphatase 51 Creatine Kinase 69 Troponin I < 0.02 Total Protein 6.4 Albumin 3.3 L 10/05/17 06:30 RBC 4.24 MCV 84.6 MCHC 33.5 RDW 14.2 MPV 9.1 Neutrophils % 62.7 Lymphocytes % 19.4 Monocytes % 10.5 H D Eosinophils % 6.2 H D Basophils % 1.2 D Medical Decision Making - Medical Decision Making 10/05/17 07:18 Patient received in sign out from CONCEPCIÓN Cintron. Patient here with complaints of midsternal chest tightness, generalized throbbing headache along with shortness of breath. Patient recently had a cardiac catheterization done a week ago which showed 20% blockage in 2 arteries. Patient was given aspirin upon arrival. Patient upon my assessment was asymptomatic. Explained to patient that she will have a second set of cardiac enzymes drawn and will consult patient's senior receptionist Dr. Araiza. Vital signs stable. Patient in route for chest x-ray. 10/05/17 10:18 chest x-ray negative. Head CT negative for acute intracranial hemorrhage, edema or midline shift mass effect or skull fracture. Patient will await second troponin. otherwise is asymptomatic and smiling arrival. 10/05/17 11:05 Laboratory Tests 10/05/17 10/05/17 10/05/17 06:30 06:30 06:30 WBC 7.2 D Hgb 12.0 Hct 35.9 Plt Count 184 Neutrophils % 62.7 PT with INR 10.40 INR 0.92 Sodium 144 Potassium 4.2 Carbon Dioxide 21 Anion Gap 12 BUN 15 Creatinine 1.0 Creat Clearance w eGFR 53.91 Random Glucose 95 Calcium 8.7 Magnesium 2.1 Total Bilirubin 0.6 D AST 17 ALT 15 Creatine Kinase 69 Troponin I < 0.02 Albumin 3.3 L 10/05/17 10:44 WBC Hgb Hct Plt Count Neutrophils % PT with INR INR Sodium Potassium Carbon Dioxide Anion Gap BUN Creatinine Creat Clearance w eGFR Random Glucose Calcium Magnesium Total Bilirubin AST ALT Creatine Kinase Pending Troponin I Pending Albumin 10/05/17 14:12 Laboratory Tests 10/05/17 10:44 Creatine Kinase 65 Troponin I < 0.02 10/05/17 14:13 Laboratory Tests 10/05/17 10:44 Creatine Kinase 65 Troponin I < 0.02 Pt awaiting CTA since she required medication prior to CAT scan secondary to allergy to IV contrast dye. 10/05/17 17:19 No evidence of pulmonary artery embolus pneumonia. The heart is mildly enlarged with no pericardial effusion. Normal caliber thoracic aorta thoracic aorta suboptimally opacified evaluation for dissection. Patient will be discharged home to follow-up with Dr. Strauss. Patient remains asymptomatic and has been ambulatory within the ED. 10/05/17 17:20 Selected Entries 10/05/17 11:27 Temperature 98.9 F Pulse Rate [ 67 Left Apical] Respiratory 16 Rate Blood Pressure 128/61 [Left Arm] O2 Sat by Pulse 100 Oximetry (%) *DC/Admit/Observation/Transfer Diagnosis at time of Disposition: Chest pain Qualifiers: Chest pain type: unspecified Qualified Code(s): R07.9 - Chest pain, unspecified - Discharge Dispostion Disposition: HOME Condition at time of disposition: Improved - Referrals Referrals: Tamiko Cox MD [Primary Care Provider] - Morris Strauss MD [Staff Physician] - - Patient Instructions Printed Discharge Instructions: DI for Chest Pain Additional Instructions: Please continue to take your medication as previously prescribed. Please follow-up with Dr. Strauss as he is aware of today's visit. please return to the ED at any given time if your symptoms return or worsen. - Post Discharge Activity
[2017-10-05] MEDS ORDERED: ASPIRIN 81 MG CHEWABLE TABLETS PO SCH (10:00)
[2017-10-05] MEDS ORDERED: ASPIRIN 81 MG CHEWABLE TABLETS ONE (10:21)
[2017-10-05 11:28] VITALS: BP 128/61; PULSE 67; TEMP 98.9
[2017-10-05] MEDS ORDERED: FAMOTIDINE IV 20 MG/12 ML VIAL IVPUSH ONE (11:58)
[2017-10-05] MEDS ORDERED: methylPREDNISolone NA SUCC 125 MG/2 ML VIAL IVPB ONE (11:58)
[2017-10-05] MEDS ORDERED: methylPREDNISolone NA SUCC 125 MG/2 ML VIAL ONE (12:08)
[2017-10-05] MEDS ORDERED: FAMOTIDINE 20 MG/50 ML IVPB 20 MG/50 ML MG IVPB ONE (12:08)
--- NOTE | 2017-10-05 16:35 | EKG ---
Test Reason : Blood Pressure : / mmHG Vent. Rate : 068 BPM Atrial Rate : 068 BPM P-R Int : 160 ms QRS Dur : 068 ms QT Int : 382 ms P-R-T Axes : 024 012 019 degrees QTc Int : 406 ms NORMAL SINUS RHYTHM NORMAL ECG WHEN COMPARED WITH ECG OF 12-SEP-2017 15:25, NO SIGNIFICANT CHANGE WAS FOUND Confirmed by INDIA BENDER MD ([id number]) on 10/05/2017 4:34:40 PM Referred By: Confirmed By:INDIA BENDER MD
--- NOTE | 2017-10-06 15:04 | EKG ---
Test Reason : Blood Pressure : / mmHG Vent. Rate : 062 BPM Atrial Rate : 062 BPM P-R Int : 156 ms QRS Dur : 080 ms QT Int : 416 ms P-R-T Axes : 022 018 018 degrees QTc Int : 422 ms SINUS RHYTHM WITH OCCASIONAL PREMATURE VENTRICULAR COMPLEXES AND PREMATURE ATRIAL COMPLEXES Confirmed by YEISON LOPEZ MD ([id number]) on 10/06/2017 3:04:05 PM Referred By: Confirmed By:YEISON LOPEZ MD
== END 2017-10-05 17:38 | disposition home or self-care (01) ==
LOC: JER 05:45
PROC: 3E033GC Introduction of Other Therapeutic Substance into Peripheral Vein, Percutaneous Approach (ICD-10-PCS; principal; 2017-10-05)
PROC: 3E033GC Introduction of Other Therapeutic Substance into Peripheral Vein, Percutaneous Approach (ICD-10-PCS; 2017-10-05)
PROC: 3E0333Z Introduction of Anti-inflammatory into Peripheral Vein, Percutaneous Approach (ICD-10-PCS; 2017-10-05)
DX: R07.89 Other chest pain (principal); Z98.61 Coronary angioplasty status
CPT/HCPCS: 36415; 70450-TC; 71046-TC-FY; 71275-TC; 80053; 82550; 83735; 84484; 85025; 85610; 93005; 93010; 99284-25

== ENCOUNTER 2017-10-19 10:53 | Emergency (ER) | payer OTHER, BC ==
[2017-10-19 11:02] VITALS: TEMP 98.1; BMI 34.3
--- NOTE | 2017-10-19 11:21 | PDOC ---
History of Present Illness - General Chief Complaint: Chest Pain Stated Complaint: CHEST PAIN History Source: Patient Exam Limitations: No Limitations - History of Present Illness Initial Comments: 10/19/17 12:37 76 year old female with pmhx of angina, TIA, HTN, HLD, and spinal stenosis presents with 2 days of left sided neck pain radiating to her left shoulder and left lower chest. Patient states that the pain started at 11am yesterday and is sharp in quality, 9/10 in severity. Patient states that the pain is intermittent. Patient states that the pain is worse with inspiration and movement and lasts for a few seconds. Patient reports associated SOB, palpitations, some nausea but denies vomiting or diaphoresis. Patient reports history of spinal stenosis in the cervical region and lower thoracic region and had physical therapy treatment before. Patient also reports left lateral thigh pain that is 4/10 in severity, non-radiating and is dull in quality. Patient states that the thigh pain also started 2 days ago. Patient also reports recent chills and nasal congestion, cold sx last week. Patient states that she was at the hospital 2 weeks ago for chest pain, CTA was negative for PE and was transferred for catheter tertiary facility. Patient denies fever, headache, blurry vision, ringing in ears, sore throat, rhinorrhea, abdominal pain, vomiting, diarrhea, constipation, dysuria, hematuria. PMD: Dr. Tamiko Cox Fabric Sourcer: Dr. 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 Heart: RRR without MRG Lungs: CTA B/L Abdomen: obese, soft, ND/NT, BS present Neuro: CN II-XII grossly intact, no focal neuro deficit, normal speech, face was symmetrical, sensation intact Psych: normal mood and affect MSK: 5/5 strength in upper and lower extremities B/L, sensation intact in upper and lower extremities B/L, DP pulse 2+ B/L, trace edema on left leg, +1 edema on right leg, tenderness to palpation in left lower ribs, tenderness to palpation in left shoulder, FROM in shoulder B/L Skin: warm and dry Differential Diagnosis: * Musculoskeletal/ costochondritis * r/o PA * r/o pna * r/o pneumothorax Workup: * CBC, CMP, Mg, PT, PTT * Cardiac profile, BNP * Chest xray * IV Tylenol 1000 mg * ASA chewable 162 mg once * 2L of O2 via NC * EKG showed normal sinus rhythm, with rate at 72 bpm, normal QRS duration, no axis deviation, no ST elevation or depression 10/19/17 12:55 10/19/17 12:57 10/19/17 12:58 Past History - Past Medical History Allergies/Adverse Reactions: Allergies Allergy/AdvReac Type Severity Reaction Status Date / Time banana [Banana] Allergy Mild Vomiting Verified 10/19/17 10:58 Iodinated Contrast- Oral and Allergy Verified 10/19/17 10:58 IV Dye [Iodinated Contrast Media - IV Dye] Sulfa (Sulfonamide Allergy Verified 10/19/17 10:58 Antibiotics) [Sulfa(Sulfonamide Antibiotics)] Home Medications: Ambulatory Orders Rosuvastatin Calcium [Crestor] 5 mg PO DAILY 06/08/15 Metoprolol Succinate [Toprol XL -] 50 mg PO DAILY 09/12/17 Aspirin [ASA -] 325 mg PO DAILY 10/19/17 Asthma: Yes CVA: Yes ("mini") COPD: No DVT: No Dementia: No HTN: Yes Hypercholesterolemia: Yes Kidney Stones: Yes - Immunization History Immunization Up to Date: Yes - Suicide/Smoking/Psychosocial Hx Smoking Status: No Smoking History: Former smoker Have you smoked in the past 12 months: No Number of Cigarettes Smoked Daily: 0 If you are a former smoker, when did you quit?: 30 years ago Information on smoking cessation initiated: No Hx Alcohol Use: No Drug/Substance Use Hx: No Substance Use Type: None Hx Substance Use Treatment: No *Physical Exam - Vital Signs Last Vital Signs Temp Pulse Resp BP Pulse Ox 98.1 F 80 19 138/69 100 10/19/17 10:58 10/19/17 10:58 10/19/17 10:58 10/19/17 10:58 10/19/17 10:58 ED Treatment Course - LABORATORY CBC & Chemistry Diagram: 10/19/17 12:30 10/19/17 12:30 *DC/Admit/Observation/Transfer Diagnosis at time of Disposition: Musculoskeletal chest pain - Discharge Dispostion Disposition: HOME Admit: No - Referrals - Patient Instructions Printed Discharge Instructions: DI for Atypical Chest Pain Additional Instructions: You presented to the Emergency Department for left sided neck pain, shoulder pain and left sided chest pain. The workup came back negative. EKG, chest xray and lab work were negative for any cardiac or pulmonary etiologies of chest pain. The pain most likely is due to musculoskeletal reasons. You will be sent home. You can use Aleve for pain as needed for pain. Please resume the rest of your medications. Please follow up with you primary care doctor and your station cashier, Dr. Araiza. If you develop worsening chest pain or shortness of breath you can return to the emergency department. - Post Discharge Activity
[2017-10-19] MEDS ORDERED: ASPIRIN 81 MG CHEWABLE TABLETS PO ONE (11:56)
[2017-10-19] MEDS ORDERED: ACETAMINOPHEN 1000 MG/100 ML VIAL (NON FORMULARY) IVPB ONE (11:57)
[2017-10-19] MEDS ORDERED: ACETAMINOPHEN INJECTION 100 ML IVPB ONE (12:22)
[2017-10-19] MEDS ORDERED: ASPIRIN 81 MG CHEWABLE TABLETS ONE (12:22)
[2017-10-19 12:41] LABS: BASO % 0.7 % (0-2.0); EOS % 1.6 % (0-4.5); HEMATOCRIT 35.3 % (32.4-45.2); HEMOGLOBIN 11.7 GM/dL (10.7-15.3); LYMPH % 15.5 % (8-40); MCHC 33.1 g/dl (32.0-36.0); MEAN CELL VOLUME 84.5 fl (80-96); MEAN PLT VOLUME 7.7 fl (7.5-11.1); MONO % 10.5 % (3.8-10.2); NEUT % 71.7 % (42.8-82.8); PLATELET COUNT 194 K/MM3 (134-434); RBC 4.17 M/mm3 (3.60-5.2); RDW 14.7 % (11.6-15.6); WHITE BLOOD COUNT 8.4 K/mm3 (4.0-10.0)
[2017-10-19 13:00] LABS: INR 1.03 (0.82-1.09); PROTHROMBIN TIME (PATIENT) 11.6 SEC (9.98-11.88)
--- NOTE | 2017-10-19 13:04 | PDOC ---
Attending Attestation - Resident Resident Name: Larry Garcia - ED Attending Attestation I have performed the following: I have examined & evaluated the patient, The case was reviewed & discussed with the resident, I agree w/resident's findings & plan, Exceptions are as noted - HPI HPI: 10/19/17 13:00 76-year-old female with history of hypertension, high cholesterol presents with left thoracic pain since yesterday. Patient recently had 2 visits since August for evaluation of chest pain that was precordial, initial visit in August resulted in transfer for catheterization that showed 20% lesion in a single-vessel, nonobstructive CAD. 2 weeks ago, the patient was seen in the emergency department for another episode of chest pain, blood tests and a CTA chest at the time were unremarkable, no evidence of pulmonary embolism or dissection. Patient now presents with a different pain, radiating from her left neck down her left thorax, associated with inspiration and positional changes, not exertional and not associated with fever/chills/cough, no precordial chest pain or dyspnea. Took aspirin last night without relief, presents for evaluation. Denies any recent injury or strain, no rash, no history of arthralgias or myalgias. No recent travel, no recent leg swelling or calf pain. - Physicial Exam PE: 10/19/17 13:02 Vital signs normal Well-appearing, seated in stretcher smiling Occasionally in discomfort with deep inspiration or positional change Heart and lungs are clear and symmetric Reproducible tenderness along the left thoracic region and no specific distribution, no rib step-off or deformity or crepitus No rash No CVA tenderness, no abdominal tenderness No leg edema or calf tenderness - Medical Decision Making 10/19/17 13:03 Patient seen and evaluated with the resident. I agree with the overall evaluation, assessment, and management with the following summary of visit: 76-year-old female with recently negative workup for chest pain including catheterization and chest CTA presents with atypical left thoracic pain without red flags on history or physical exam. Resuscitation seem most consistent with musculoskeletal etiology, will rule out lung pathology such as pneumothorax or pneumonia. We'll perform cardiac workup, which should be reassuring in the setting of 24 hours of atypical symptoms and recent negative workup. Labs, EKG Chest x-ray Trial of Tylenol Reassess. Discussed with Dr. Strauss. If above is within normal limits, expect outpt f/u Heart Score/ECG Review #1 General ECG Interpretation: Sinus Rhythm, Normal Rate (73), Normal Intervals ( qtc 420), No acute ischemic changes
[2017-10-19 13:12] LABS: ALBUMIN 3.4 g/dl (3.4-5.0); ANION GAP 4 (8-16); BILIRUBIN,TOTAL 0.6 mg/dL (0.2-1.0); BLOOD UREA NITROGEN 13 mg/dL (7-18); CALCIUM 8.6 mg/dL (8.5-10.1); CHLORIDE 107 mmol/L (98-107); CO2 30 mmol/L (21-32); CREATININE 0.7 mg/dL (0.55-1.02); GLUCOSE,RANDOM 98 mg/dL (74-106); MAGNESIUM 1.9 mg/dL (1.8-2.4); POTASSIUM 4.6 mmol/L (3.5-5.1); SGOT/AST 13 U/L (15-37); SGPT/ALT 14 U/L (12-78); SODIUM 141 mmol/L (136-145); TOT PROT 6.6 g/dl (6.4-8.2)
[2017-10-19 13:15] LABS: ALK PHOS 59 U/L (45-117); N-TERMINAL BNP 257.69 pg/ml (5-450)
[2017-10-19 13:50] VITALS: BP 125/75; PULSE 75
--- NOTE | 2017-10-19 14:12 | EKG ---
Test Reason : Blood Pressure : / mmHG Vent. Rate : 073 BPM Atrial Rate : 073 BPM P-R Int : 150 ms QRS Dur : 082 ms QT Int : 382 ms P-R-T Axes : 052 022 031 degrees QTc Int : 420 ms NORMAL SINUS RHYTHM NORMAL ECG WHEN COMPARED WITH ECG OF 05-OCT-2017 10:55, PREMATURE VENTRICULAR COMPLEXES ARE NO LONGER PRESENT PREMATURE ATRIAL COMPLEXES ARE NO LONGER PRESENT Confirmed by YULIA HONEYCUTT, INDIA (2013) on 10/19/2017 2:12:21 PM Referred By: Confirmed By:INDIA BENDER MD
== END 2017-10-19 14:24 | disposition home or self-care (01) ==
LOC: JER 10:53
PROC: 3E033NZ Introduction of Analgesics, Hypnotics, Sedatives into Peripheral Vein, Percutaneous Approach (ICD-10-PCS; principal; 2017-10-19)
DX: R07.89 Other chest pain (principal); I25.119 Atherosclerotic heart disease of native coronary artery with unspecified angina pectoris; Z98.61 Coronary angioplasty status; I10 Essential (primary) hypertension; Z87.891 Personal history of nicotine dependence; M48.02 Spinal stenosis, cervical region; Z86.73 Personal history of transient ischemic attack (TIA), and cerebral infarction without residual deficits
CPT/HCPCS: 36415; 71046-TC-FY; 80053; 82550; 83735; 83880; 84484; 85025; 85610; 93005; 93010; 99284-25; J0131

== ENCOUNTER 2018-03-25 15:33 | Observation (INO) | payer OTHER, BC ==
[2018-03-25 15:38] VITALS: BMI 35.5
--- NOTE | 2018-03-25 16:39 | PDOC ---
History of Present Illness - General Chief Complaint: Shortness of Breath Stated Complaint: SOB Time Seen by Provider: 03/25/18 15:58 History Source: Patient Exam Limitations: No Limitations - History of Present Illness Initial Comments: 03/25/18 16:28 Pt is a 77yo f with PMH of angina, ministroke in 2013 presenting to ED with "problem breathing". Pt states that on 03/13 her isosorbide medication was changed from QAM to QPM and since then she has been feeling short of breath. It is associated with a pressure in her chest, intermittent lightheadedness and headaches. She admits to frequent urination. She takes her medications daily She denies dizziness, abdominal pain, n/v/d, neck pain, calf swelling, cough, recent illnesses, fever/chills. PMH: see hpi PSH: none Meds: Crestor, isosorbide, metoprolol, ASA 81 Allergies: iodine Social: denies PCP: Kenny Past History - Past Medical History Allergies/Adverse Reactions: Allergies Allergy/AdvReac Type Severity Reaction Status Date / Time banana [Banana] Allergy Mild Vomiting Verified 03/25/18 15:38 Iodinated Contrast- Oral and Allergy Verified 03/25/18 15:38 IV Dye [Iodinated Contrast Media - IV Dye] Sulfa (Sulfonamide Allergy Verified 03/25/18 15:38 Antibiotics) [Sulfa(Sulfonamide Antibiotics)] Home Medications: Ambulatory Orders Rosuvastatin Calcium [Crestor] 5 mg PO DAILY 06/08/15 Metoprolol Succinate [Toprol XL -] 50 mg PO DAILY 09/12/17 Aspirin [ASA -] 325 mg PO DAILY 10/19/17 Isosorbide Mononitrate [Isosorbide Mononitrate ER] 30 mg PO DAILY 03/25/18 Asthma: Yes CVA: Yes ("mini") COPD: No DVT: No Dementia: No HTN: Yes Hypercholesterolemia: Yes Kidney Stones: Yes - Immunization History Immunization Up to Date: Yes - Suicide/Smoking/Psychosocial Hx Smoking Status: No Smoking History: Never smoked Have you smoked in the past 12 months: No Number of Cigarettes Smoked Daily: 0 If you are a former smoker, when did you quit?: 30 years ago Information on smoking cessation initiated: No Hx Alcohol Use: No Drug/Substance Use Hx: No Substance Use Type: None Hx Substance Use Treatment: No Review of Systems - Review of Systems Constitutional: No: Chills, Fever, Loss of Appetite, Weakness HEENTM: No: Recent change in vision, Double Vision Respiratory: Yes: Shortness of Breath. No: Cough, Wheezing Cardiac (ROS): Yes: Lightheadedness, Chest Tightness. No: Chest Pain, Palpitations, Syncope ABD/GI: No: Constipated, Diarrhea, Nausea, Rectal Bleeding, Vomiting, Abdominal cramping : Yes: Frequency. No: Burning, Dysuria, Hematuria Musculoskeletal: Yes: Back Pain (chronic lower back pain). No: Joint Pain, Muscle Pain, Muscle Weakness, Neck Pain Neurological: Yes: Headache, Tingling (posterior R calf). No: Numbness, Paresthesia Endocrine: Yes: Increased Urine *Physical Exam - Vital Signs Last Vital Signs Temp Pulse Resp BP Pulse Ox 98.2 F 63 18 133/59 99 03/25/18 15:35 03/25/18 15:35 03/25/18 15:35 03/25/18 15:35 03/25/18 15:35 - Physical Exam General Appearance: Yes: Nourished, Appropriately Dressed. No: Apparent Distress HEENT: positive: EOMI, JOYCE, Pharynx Normal. negative: Scleral Icterus (R), Scleral Icterus (L), Pharyngeal Erythema, Nasal Congestion Neck: positive: Trachea midline, Supple. negative: Carotid bruit, Lymphadenopathy (R), Lymphadenopathy (L) Respiratory/Chest: positive: Lungs Clear, Normal Breath Sounds. negative: Respiratory Distress, Crackles, Rales, Stridor, Wheezing Cardiovascular: positive: Regular Rhythm, Regular Rate, S1, S2. negative: JVD, Murmur Vascular Pulses: Carotid (R): 2+, Carotid (L): 2+, Dorsalis-Pedis (R): 2+, Doralis-Pedis (L): 2+ Gastrointestinal/Abdominal: positive: Normal Bowel Sounds, Soft. negative: Distended, Guarding, Rebound, Tenderness Musculoskeletal: negative: CVA Tenderness Extremity: positive: Normal Capillary Refill Integumentary: positive: Normal Color, Dry, Warm Neurologic: positive: lacing string cutter II-XII NML intact, Fully Oriented, Alert, Normal Mood/ Affect, Normal Response, Motor Strength 5/5 Heart Score/ECG Review - History History: Slightly suspicious - Electrocardiogram EKG: Normal - Age Age: >/= 65 - Risk Factors Risk Factors Heart Score: Yes Hx Hypercholesterolemia, Yes Hx Hypertension Based on the list above the patient has:: 1-2 risk factors - Troponin Troponin: </= normal limit - Score Heart Score - Total: 3 ED Treatment Course - LABORATORY CBC & Chemistry Diagram: 03/25/18 16:54 03/25/18 18:30 - RADIOLOGY Radiology Studies Ordered: Category Date Time Status CHEST X-RAY PORTABLE* [RAD] Stat Radiology 03/25/18 16:23 Ordered Medical Decision Making - Medical Decision Making 03/25/18 16:47 Pt is a 77yo f with PMH of angina, ministroke in 2013 presenting to ED with "problem breathing". ACS workup. EKG, CXR, Trop. Will check UA for frequent urination. Low suspicion for PE: no recent travel/surgeries, no signs of DVT, not tachycardic, not tachypneic, saturating well on RA. *DC/Admit/Observation/Transfer - Referrals - Patient Instructions - Post Discharge Activity
[2018-03-25 17:02] LABS: BASO % 1.2 % (0-2.0); EOS % 5.7 % (0-4.5); HEMATOCRIT 36.5 % (32.4-45.2); HEMOGLOBIN 12.2 GM/dL (10.7-15.3); LYMPH % 28.2 % (8-40); MCH 27.6 pg (25.7-33.7); MCHC 33.5 g/dl (32.0-36.0); MEAN CELL VOLUME 82.2 fl (80-96); MEAN PLT VOLUME 7.7 fl (7.5-11.1); MONO % 9.3 % (3.8-10.2); NEUT % 55.6 % (42.8-82.8); PLATELET COUNT 218 K/MM3 (134-434); RBC 4.44 M/mm3 (3.60-5.2); RDW 14.3 % (11.6-15.6); WHITE BLOOD COUNT 6.1 K/mm3 (4.0-10.0)
[2018-03-25] MEDS ORDERED: ASPIRIN 81 MG CHEWABLE TABLETS PO ONE (17:20)
--- NOTE | 2018-03-25 18:01 | PDOC ---
Attending Attestation - Resident Resident Name: Sa Jennira - ED Attending Attestation I have performed the following: I have examined & evaluated the patient, The case was reviewed & discussed with the resident, I agree w/resident's findings & plan, Exceptions are as noted - HPI HPI: 03/25/18 18:12 77 year old female with past medical history of TIA, coronary disease, hypertension, hyperlipidemia presents with one-week chest tightness and shortness of breath. Reports dyspnea on exertion. Denies vomiting. States that a week ago, the patient has had her isosorbide nitrate dose increased and has been expressing tension like headaches. Because of worsening of chest tightness , came to the ER. - Physicial Exam PE: 03/25/18 18:12 GENERAL: Awake, alert, and fully oriented, in no acute distress. HEAD: No signs of trauma EYES:EOMI, sclera anicteric, conjunctiva clear ENT: Auricles normal inspection, hearing grossly normal, nares patent, NECK: Normal ROM, supple, no lymphadenopathy, JVD, or masses LUNGS: Breath sounds equal, clear to auscultation bilaterally. No wheezes, and no crackles HEART: Regular rate and rhythm, normal S1 and S2, no murmurs, rubs or gallops EXTREMITIES: Normal range of motion, no edema. No clubbing or cyanosis. No cords, erythema, or tenderness NEUROLOGICAL: Cranial nerves II through XII grossly intact. Normal speech, normal gait SKIN: Warm, Dry, normal turgor, no rashes or lesions noted. - Medical Decision Making 03/25/18 18:12 Vital Signs Temp Pulse Resp BP Pulse Ox 98.2 F 63 18 133/59 99 03/25/18 15:35 03/25/18 15:35 03/25/18 15:35 03/25/18 15:35 03/25/18 16:30 Headaches are likely secondary to increasing dose of isosorbide nitrates. Will observe at this time. In addition, given hx of cardiac disease and worsening chest tightness, r/o ACS/ NM Aspirin. Troponin, chest xray, labs, admit. Heart Score/ECG Review #1 ECG reviewed & interpreted by me at: 17:35 03/25/18 17:55 NSR 52, no std/robert, TWI III, normal axis, normal intervals, QTC 407 msec
[2018-03-25 19:13] LABS: ALBUMIN 3.6 g/dl (3.4-5.0); ANION GAP 10 MMOL/L (8-16); BLOOD UREA NITROGEN 17 mg/dL (7-18); CALCIUM 8.9 mg/dL (8.5-10.1); CHLORIDE 111 mmol/L (98-107); CO2 25 mmol/L (21-32); CREATININE 0.8 mg/dL (0.55-1.02); GLUCOSE,RANDOM 88 mg/dL (74-106); PHOSPHOROUS 2.7 mg/dL (2.5-4.9); POTASSIUM 4.1 mmol/L (3.5-5.1); SGOT/AST 16 U/L (15-37); SGPT/ALT 17 U/L (12-78); SODIUM 146 mmol/L (136-145)
[2018-03-25 19:14] LABS: MAGNESIUM 2.1 mg/dL (1.8-2.4); PHOSPHOROUS 2.8 mg/dL (2.5-4.9)
[2018-03-25 19:17] LABS: ALK PHOS 59 U/L (45-117); BILIRUBIN,TOTAL 0.5 mg/dL (0.2-1.0); TOT PROT 6.6 g/dl (6.4-8.2)
[2018-03-25 20:25] LABS: URINE APPEARANCE CLEAR; URINE BILIRUBIN NEGATIVE (<2.0 mg/dL); URINE COLOR LTYELLOW; URINE GLUCOSE (UA) NEGATIVE (NEGATIVE); URINE KETONE NEGATIVE (NEGATIVE); URINE NITRITE NEGATIVE (NEGATIVE); URINE PROTEIN NEGATIVE (NEGATIVE); URINE UROBILINOGEN NEGATIVE mg/dL (0.2-1.0)
[2018-03-25 20:39] LABS: URINE LEUK ESTERASE 2+ (NEGATIVE)
[2018-03-25 20:41] LABS: EPI CELLS RARE /HPF (FEW); URINE MUCUS RARE
[2018-03-25] MEDS: ROSUVASTATIN CA 5 MG TABLET (FP) PO SCH (21:34)
--- NOTE | 2018-03-25 21:37 | HP ---
Admitting History and Physical - Primary Care Physician PCP: Tamiko Cox - Admission Chief Complaint: Chest Pressure, SOB History of Present Illness: This is a 77 y/o female with significant medical history of Angina, TIA, HTN, HLD. Who presents to the ED with SOB, chest pressure and lightheadedness x 1 week. Patient reports since having a change in her medication regimen she has been having increased SOB and urinary frequency. Patient reports that the pressure is non-radiating and intermittent. Patient denies fever, chills, cough , palpitations, AP, N/V/D, constipation, dysuria. Patient reports having an Echo last August states it was normal. 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 Cardiovascular: Yes: HTN, Hyperlipdemia - Smoking History Smoking history: Former smoker Have you smoked in the past 12 months: No Aproximately how many cigarettes per day: 0 If you are a former smoker, when did you quit?: 30 years ago - Alcohol/Substance Use Hx Alcohol Use: No History of Substance Use: reports: None - Social History Usual Living Arrangement: Yes: Alone ADL: Independent History of Recent Travel: No Home Medications - Allergies Allergies/Adverse Reactions: Allergies Allergy/AdvReac Type Severity Reaction Status Date / Time banana [Banana] Allergy Mild Vomiting Verified 03/25/18 15:38 Iodinated Contrast- Oral and Allergy Verified 03/25/18 15:38 IV Dye [Iodinated Contrast Media - IV Dye] Sulfa (Sulfonamide Allergy Verified 03/25/18 15:38 Antibiotics) [Sulfa(Sulfonamide Antibiotics)] - Home Medications Home Medications: Ambulatory Orders Rosuvastatin Calcium [Crestor] 5 mg PO DAILY 06/08/15 Metoprolol Succinate [Toprol XL -] 50 mg PO DAILY 09/12/17 Aspirin [ASA -] 325 mg PO DAILY 10/19/17 Isosorbide Mononitrate [Isosorbide Mononitrate ER] 30 mg PO DAILY 03/25/18 Family Disease History - Family Disease History Family Disease History: Heart Disease: Grandparent ([place], Pancreatic Ca), CA: Grandparent, Father (Prostate) Other Family History: Aunt- Breast Ca. Uncle- Other Ca Review of Systems - Review of Systems Constitutional: reports: No Symptoms Eyes: reports: No Symptoms HENT: reports: No Symptoms Neck: reports: No Symptoms Cardiovascular: reports: Chest Pain, Shortness of Breath Respiratory: reports: SOB Gastrointestinal: reports: No Symptoms Genitourinary: reports: Frequency. denies: Burning, Dysuria, Urgency Breasts: reports: No Symptoms Reported Musculoskeletal: reports: No Symptoms Integumentary: reports: No Symptoms Neurological: reports: Other (Lightheadedness) Endocrine: reports: No Symptoms Hematology/Lymphatic: reports: No Symptoms Psychiatric: reports: No Symptoms Pain Intensity: 6 Physical Examination Vital Signs: Vital Signs Temperature 97.9 F 03/25/18 18:25 Pulse Rate 60 03/25/18 18:25 Respiratory Rate 18 03/25/18 18:25 Blood Pressure 137/71 03/25/18 18:25 O2 Sat by Pulse Oximetry (%) 100 03/25/18 18:25 Constitutional: Yes: Well Nourished, No Distress, Calm Eyes: Yes: WNL, Conjunctiva Clear, EOM Intact, PERRL HENT: Yes: WNL, Atraumatic, Normocephalic Neck: Yes: WNL, Supple, Trachea Midline Cardiovascular: Yes: Bradycardia, S1, S2 Respiratory: Yes: WNL, Regular, CTA Bilaterally Gastrointestinal: Yes: WNL, Soft, Hypoactive Bowel Sounds ...Rectal Exam: Yes: Deferred Renal/: Yes: WNL Breast(s): Yes: WNL Musculoskeletal: Yes: WNL Extremities: Yes: WNL Edema: Yes Edema: LLE: Trace, RLE: Trace Peripheral Pulses WNL: Yes Integumentary: Yes: WNL Neurological: Yes: WNL, Alert, Oriented, Cran Nerves II-XII Intact ...Motor Strength: WNL Psychiatric: Yes: WNL, Alert, Oriented Labs: CBC, BMP 03/25/18 16:54 03/25/18 18:30 Laboratory Results - last 24 hr 03/25/18 03/25/18 03/25/18 16:54 17:40 17:40 WBC 6.1 RBC 4.44 Hgb 12.2 Hct 36.5 MCV 82.2 MCH 27.6 MCHC 33.5 RDW 14.3 Plt Count 218 MPV 7.7 Absolute Neuts (auto) 3.4 Neutrophils % 55.6 D Lymphocytes % 28.2 D Monocytes % 9.3 Eosinophils % 5.7 H D Basophils % 1.2 Nucleated RBC % 0 Sodium Cancelled Potassium Cancelled Chloride Cancelled Carbon Dioxide Cancelled Anion Gap Cancelled BUN Cancelled Creatinine Cancelled Creat Clearance w eGFR Cancelled Random Glucose Cancelled Calcium Cancelled Phosphorus Magnesium Total Bilirubin Cancelled AST Cancelled ALT Cancelled Alkaline Phosphatase Cancelled Creatine Kinase Troponin I Cancelled Total Protein Cancelled Albumin Cancelled Urine Color Urine Appearance Urine pH Ur Specific [place] Urine Protein Urine Glucose (UA) Urine Ketones Urine Blood Urine Nitrite Urine Bilirubin Urine Urobilinogen Ur Leukocyte Esterase Urine WBC (Auto) Urine RBC (Auto) Ur Epithelial Cells Urine Mucus 03/25/18 03/25/18 03/25/18 17:40 18:30 18:30 WBC RBC Hgb Hct MCV MCH MCHC RDW Plt Count MPV Absolute Neuts (auto) Neutrophils % Lymphocytes % Monocytes % Eosinophils % Basophils % Nucleated RBC % Sodium 146 H Potassium 4.1 Chloride 111 H Carbon Dioxide 25 Anion Gap 10 BUN 17 Creatinine 0.8 Creat Clearance w eGFR > 60 Random Glucose 88 Calcium 8.9 Phosphorus 2.8 2.7 Magnesium 2.1 2.0 Total Bilirubin 0.5 AST 16 ALT 17 Alkaline Phosphatase 59 Creatine Kinase Cancelled 99 Troponin I Cancelled < 0.02 Total Protein 6.6 Albumin 3.6 Urine Color Urine Appearance Urine pH Ur Specific [place] Urine Protein Urine Glucose (UA) Urine Ketones Urine Blood Urine Nitrite Urine Bilirubin Urine Urobilinogen Ur Leukocyte Esterase Urine WBC (Auto) Urine RBC (Auto) Ur Epithelial Cells Urine Mucus 03/25/18 19:17 WBC RBC Hgb Hct MCV MCH MCHC RDW Plt Count MPV Absolute Neuts (auto) Neutrophils % Lymphocytes % Monocytes % Eosinophils % Basophils % Nucleated RBC % Sodium Potassium Chloride Carbon Dioxide Anion Gap BUN Creatinine Creat Clearance w eGFR Random Glucose Calcium Phosphorus Magnesium Total Bilirubin AST ALT Alkaline Phosphatase Creatine Kinase Troponin I Total Protein Albumin Urine Color Ltyellow Urine Appearance Clear Urine pH 6.0 Ur Specific [place] 1.015 Urine Protein Negative Urine Glucose (UA) Negative Urine Ketones Negative Urine Blood 2+ H Urine Nitrite Negative Urine Bilirubin Negative Urine Urobilinogen Negative Ur Leukocyte Esterase 2+ H Urine WBC (Auto) 25 Urine RBC (Auto) 6 Ur Epithelial Cells Rare Urine Mucus Rare Current Medications Generic Name Dose Route Start Last Admin Trade Name Freq PRN Reason Stop Dose Admin Aspirin 325 mg 03/26/18 10:00 Asa - PO DAILY RO Isosorbide Mononitrate 30 mg 03/26/18 10:00 Imdur - PO DAILY RO Metoprolol Succinate 50 mg 03/25/18 22:00 03/25/18 21:34 Toprol Xl - PO Not Given HS RO Rosuvastatin Calcium 5 mg 03/25/18 22:00 03/25/18 21:34 Crestor - PO 5 mg HS RO Administration Intake & Output 03/22/18 03/23/18 03/24/18 03/25/18 23:59 23:59 23:59 23:59 Weight 82.554 kg Imaging - Results Chest X-ray: Image Reviewed EKG: Image Reviewed Problem List - Problems (1) Chest pain Code(s): R07.9 - CHEST PAIN, UNSPECIFIED Qualifiers: Chest pain type: unspecified Qualified Code(s): R07.9 - Chest pain, unspecified (2) SOB (shortness of breath) Code(s): R06.02 - SHORTNESS OF BREATH (3) Urinary tract infection Code(s): N39.0 - URINARY TRACT INFECTION, SITE NOT SPECIFIED Qualifiers: Urinary tract infection type: acute cystitis Hematuria presence: without hematuria Qualified Code(s): N30.00 - Acute cystitis without hematuria (4) CAD (coronary artery disease) Code(s): I25.10 - ATHSCL HEART DISEASE OF [place] CORONARY ARTERY W/O ANG PCTRS (5) HLD (hyperlipidemia) Code(s): E78.5 - HYPERLIPIDEMIA, UNSPECIFIED (6) HTN (hypertension) Code(s): I10 - ESSENTIAL (PRIMARY) HYPERTENSION (7) DVT prophylaxis Code(s): [id number] - Assessment/Plan 77 y/o woman with a PMHx of Angina, HTN, HLD, TIA. Placed on Tele Observation for Chest Pain r/o ACS, UTI, for furhter evaluation of their emergent condition. Plan: 1. Cardiovascular: Chest Pain- r/o ACS, HTN, HLD,- HEART Score 5, continue cardiac monitoring, Appreciate Cardiology consult, Serial Enzymes negx1, Continue Asa, Offered NTG sl, patient refused, last echo 08/2017- nl per patient , will need to confirm with Dr. Morris Strauss's office. On file Echo 05/2017 showed- LV nl, LVSF nl, no wall motion abnl, mild , mild AR, no pericardial effusion. Continue home meds, Monitor LFTs 2. Pulmonology: SOB- Likely secondary to Arrhythmia vs HF vs PE. Wells Score 0, Chest Xray image reviewed no infiltrate or effusion noted, O2 as needed, Duonebs prn 3. : UTI- UA - +2 Leukocyte esterase, +2 blood, 25 WBCs, Will order Urine Culture, Will start Levaquin 3. Neuro: TIA- stable, continue Asa, Fall Precautions, Neuro checks 4.FEN- PO fluids as tolerated, Replete lytes prn, Low Na, Low Cholesterol Diet 5. DVT ppx - OOB, SCDs, Continue Full Dose Asa Code Status: Full Code Dispo: Observation Visit type - Emergency Visit Emergency Visit: Yes ED Registration Date: 03/25/18 Care time: The patient presented to the Emergency Department on the above date and was hospitalized for further evaluation of their emergent condition. - New Patient This patient is new to me today: Yes Date on this admission: 03/25/18 - Critical Care Critical Care patient: No Hospitalist Screening - Colonoscopy Questionnaire Colonoscopy Questionnaire: Colonoscopy Questionnaire - Patient: 50 - 75 years old and never had a screening colonoscopy: No History of colon or rectal polyps, or CA: No History of IBD, Crohn's disease or UC: No History of abdominal radiation therapy as a child: No - Relative: 1 with colon or rectal CA, or polyps at age 60 or younger: No Colon or rectal CA diagnosed at age 45 or younger: No Multiple relatives with colon or rectal CA: No - Outcome: Screening Result: Negative Screen
[2018-03-26 07:12] LABS: BASO % 1.3 % (0-2.0); EOS % 6.4 % (0-4.5); HEMATOCRIT 35.8 % (32.4-45.2); HEMOGLOBIN 11.6 GM/dL (10.7-15.3); LYMPH % 30.2 % (8-40); MCH 26.9 pg (25.7-33.7); MCHC 32.5 g/dl (32.0-36.0); MEAN CELL VOLUME 82.8 fl (80-96); MEAN PLT VOLUME 8.2 fl (7.5-11.1); MONO % 10.4 % (3.8-10.2); NEUT % 51.7 % (42.8-82.8); PLATELET COUNT 191 K/MM3 (134-434); RBC 4.33 M/mm3 (3.60-5.2); RDW 14.6 % (11.6-15.6); WHITE BLOOD COUNT 4.6 K/mm3 (4.0-10.0)
[2018-03-26 08:05] LABS: CHLORIDE 112 mmol/L (98-107); SODIUM 147 mmol/L (136-145)
[2018-03-26 08:36] LABS: ANION GAP 11 MMOL/L (8-16); BLOOD UREA NITROGEN 17 mg/dL (7-18); CALCIUM 8.5 mg/dL (8.5-10.1); CHOLESTEROL 141 mg/dL (50-200); CO2 24 mmol/L (21-32); CREATININE 0.6 mg/dL (0.55-1.02); GLUCOSE,RANDOM 90 mg/dL (74-106); HDL CHOLESTEROL 95 mg/dL (40-60); TRIGLYCERIDES 51 mg/dL (35-160)
[2018-03-26] MEDS: ISOSORBIDE MONONITRATE 30 MG TAB.SR.24H (FP) PO SCH (10:52)
[2018-03-26] MEDS: ASPIRIN 325 MG TABLET PO SCH (10:53)
--- NOTE | 2018-03-26 13:22 | EKG ---
Test Reason : Blood Pressure : / mmHG Vent. Rate : 052 BPM Atrial Rate : 052 BPM P-R Int : 170 ms QRS Dur : 080 ms QT Int : 438 ms P-R-T Axes : 049 013 017 degrees QTc Int : 407 ms SINUS BRADYCARDIA WITH SINUS ARRHYTHMIA OTHERWISE NORMAL ECG WHEN COMPARED WITH ECG OF 19-OCT-2017 11:04, NO SIGNIFICANT CHANGE WAS FOUND Confirmed by PIYUSH RAYMUNDO MD ([id number]) on 03/26/2018 1:22:28 PM Referred By: Confirmed By:PIYUSH RAYMUNDO MD
--- NOTE | 2018-03-26 15:57 | CON.CARD ---
Consult Consult Specialty:: Cardiology - History of Present Illness Chief Complaint: Chest pressure History of Present Illness: 77 F with ho CVA and angina. A cardiac cath in [facility] after presenting with recurrent chest pain and mildly abnormal stress test reportedly showed small vessel CAD with slow flow as per the patient. She presents now with chest pain on ambulation. IN the past NTG has relieved her CP but she does not use this often. SHe had been unable to tolerate higher doses of antianginal medications due to headaches and only takes low dose ISMO and metoprolol. Currently CP free. 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 Cardio/Vascular: Yes: HTN, Hyperlipdemia ...: No - Alcohol/Substance Use Hx Alcohol Use: No History of Substance Use: reports: None - Smoking History Smoking history: Former smoker Have you smoked in the past 12 months: No Aproximately how many cigarettes per day: 0 If you are a former smoker, when did you quit?: 30 years ago - Social History ADL: Independent History of Recent Travel: No Home Medications - Allergies Allergies/Adverse Reactions: Allergies Allergy/AdvReac Type Severity Reaction Status Date / Time banana [Banana] Allergy Mild Vomiting Verified 03/25/18 15:38 Iodinated Contrast- Oral and Allergy Verified 03/25/18 15:38 IV Dye [Iodinated Contrast Media - IV Dye] Sulfa (Sulfonamide Allergy Verified 03/25/18 15:38 Antibiotics) [Sulfa(Sulfonamide Antibiotics)] - Home Medications Home Medications: Ambulatory Orders Rosuvastatin Calcium [Crestor] 5 mg PO DAILY 06/08/15 Metoprolol Succinate [Toprol XL -] 50 mg PO DAILY 09/12/17 Aspirin [ASA -] 325 mg PO DAILY 10/19/17 Isosorbide Mononitrate [Isosorbide Mononitrate ER] 30 mg PO DAILY 03/25/18 Family Disease History - Family Disease History Family Disease History: Heart Disease: Grandparent ([place], Pancreatic Ca), CA: Grandparent, Father (Prostate) Other Family History: Aunt- Breast Ca. Uncle- Other Ca Review of Systems - Review of Systems Constitutional: reports: No Symptoms Eyes: reports: No Symptoms HENT: reports: No Symptoms. denies: Difficult Swallowing, Ear Discharge Neck: denies: Decreased ROM, Lumps Cardiovascular: reports: Chest Pain, Shortness of Breath. denies: Edema, Palpitations Respiratory: reports: Exercise Intolerance. denies: Cough Gastrointestinal: reports: No Symptoms Genitourinary: reports: No Symptoms Integumentary: reports: No Symptoms Neurological: reports: No Symptoms Endocrine: reports: No Symptoms Vital Signs: Vital Signs Temperature 98 F 03/26/18 15:17 Pulse Rate 66 03/26/18 15:05 Respiratory Rate 18 03/26/18 15:05 Blood Pressure 130/71 03/26/18 15:05 O2 Sat by Pulse Oximetry (%) 100 03/26/18 08:20 Constitutional: Yes: Well Nourished, No Distress, Calm Eyes: Yes: Conjunctiva Clear, EOM Intact HENT: Yes: Atraumatic, Normocephalic Neck: Yes: Supple, Trachea Midline Respiratory: Yes: Regular, CTA Bilaterally Gastrointestinal: Yes: Normal Bowel Sounds, Soft Cardiovascular: Yes: Regular Rate and Rhythm JVD: No Carotid Bruit: No PMI: Non-Displaced Heart Sounds: Yes: S1, S2 Murmur: No: Systolic Murmur, Diastolic Murmur - Other Data Labs, Other Data: CBC, BMP 03/26/18 05:30 03/26/18 05:30 Troponin, BNP 03/25/18 03/25/18 03/25/18 17:40 17:40 18:30 Troponin I Cancelled Cancelled < 0.02 03/26/18 03/26/18 00:00 05:30 Troponin I < 0.02 < 0.02 Troponin, BNP 03/25/18 03/25/18 03/25/18 17:40 17:40 18:30 Troponin I Cancelled Cancelled < 0.02 03/26/18 03/26/18 00:00 05:30 Troponin I < 0.02 < 0.02 NSR no STT changes Problem List - Problems (1) Atypical chest pain Code(s): R07.89 - OTHER CHEST PAIN Assessment/Plan 77 yo F with chest pain and a recent cardiac cath. No intervention was advised at that time but was placed on anti anginal medications which she has been unable to tolerate due to headaches. Not all of her symptoms are typical for angina. SHe likely has occasional cardiac chest pain. COntinue with Isosorbide mono 30mg qd. If she prefers to take this qHS, thats fine. Can use NTG SL for management of CP. Add Ranexa 500mg bid. Continue TOrpol, ASA and Statin. Lower ASA 81mg qd.
--- NOTE | 2018-03-26 17:55 | PN ---
Progress Note, Physician - Current Medication List Current Medications: Active Medications Aspirin (Asa -) 325 mg PO DAILY [facility] Last Admin: 03/26/18 10:53 Dose: 325 mg Isosorbide Mononitrate (Imdur -) 30 mg PO DAILY [facility] Levofloxacin (Levaquin -) 250 mg PO DAILY@0600 [facility] Last Admin: 03/26/18 08:11 Dose: 250 mg Metoprolol Succinate (Toprol Xl -) 50 mg PO [facility] Last Admin: 03/25/18 21:34 Dose: Not Given Ranolazine (Ranexa -) 500 mg PO BID [facility] Rosuvastatin Calcium (Crestor -) 5 mg PO [facility] Last Admin: 03/25/18 21:34 Dose: 5 mg - Objective Vital Signs: Vital Signs Temperature 98.2 F 03/26/18 17:19 Pulse Rate 64 03/26/18 17:19 Respiratory Rate 20 03/26/18 17:19 Blood Pressure 176/83 03/26/18 17:19 O2 Sat by Pulse Oximetry (%) 100 03/26/18 08:20 Cardiovascular: Yes: S1, S2 Respiratory: Yes: Regular, CTA Bilaterally Gastrointestinal: Yes: Normal Bowel Sounds, Soft Labs: CBC, BMP 03/26/18 05:30 03/26/18 05:30 Problem List - Problems (1) Atypical chest pain Assessment/Plan: -continue cardiac monitoring, -Appreciate Cardiology consult, -Serial Enzymes negx3, -Continue Asa, -Continue home meds, Monitor LFTs -Stress test aug 2017 per pt-- will obtain results Code(s): R07.89 - OTHER CHEST PAIN (2) CAD (coronary artery disease) Assessment/Plan: -As Above Code(s): I25.10 - ATHSCL HEART DISEASE OF [place] CORONARY ARTERY W/O ANG PCTRS (3) HTN (hypertension) Assessment/Plan: -Monitor Code(s): I10 - ESSENTIAL (PRIMARY) HYPERTENSION (4) Urinary tract infection Assessment/Plan: - UA - +2 Leukocyte esterase, +2 blood, 25 WBCs, Will order Urine Culture, Will start Levaquin Code(s): N39.0 - URINARY TRACT INFECTION, SITE NOT SPECIFIED Qualifiers: Urinary tract infection type: acute cystitis Hematuria presence: without hematuria Qualified Code(s): N30.00 - Acute cystitis without hematuria
[2018-03-26] MEDS ORDERED: PT OWN MED DRAWER 7, Y5N ONE (21:23)
[2018-03-26] MEDS: RANOLAZINE E.R. 500 MG TABLET (FP) PO SCH (21:39)
[2018-03-26] MEDS: ROSUVASTATIN CA 5 MG TABLET (FP) PO SCH (21:39)
--- NOTE | 2018-03-27 09:04 | DS ---
Physical Examination Vital Signs: Vital Signs Temperature 98.2 F 03/27/18 02:26 Pulse Rate 68 03/27/18 06:00 Respiratory Rate 20 03/27/18 06:00 Blood Pressure 120/58 03/27/18 06:00 O2 Sat by Pulse Oximetry (%) 98 03/26/18 20:48 Cardiovascular: Yes: S1, S2 Respiratory: Yes: Regular, CTA Bilaterally Gastrointestinal: Yes: Normal Bowel Sounds, Soft Labs: CBC, BMP 03/26/18 05:30 03/26/18 05:30 Discharge Summary Reason For Visit: ALTERED EMNTAL STATUS Hospital Course: - Problems (1) Atypical chest pain Assessment/Plan: -continue cardiac monitoring, -Appreciate Cardiology consult, -Maybe costocondritis -Serial Enzymes negx3, -Continue Asa, -Continue home meds, Monitor LFTs -Stress test aug 2017 per pt-- will obtain results Code(s): R07.89 - OTHER CHEST PAIN (2) CAD (coronary artery disease) Assessment/Plan: -As Above Code(s): I25.10 - ATHSCL HEART DISEASE OF [place] CORONARY ARTERY W/O ANG PCTRS (3) HTN (hypertension) Assessment/Plan: -Monitor Code(s): I10 - ESSENTIAL (PRIMARY) HYPERTENSION (4) Urinary tract infection Assessment/Plan: - UA - +2 Leukocyte esterase, +2 blood, 25 WBCs, Will order Urine Culture, Will start Levaquin Code(s): N39.0 - URINARY TRACT INFECTION, SITE NOT SPECIFIED Qualifiers: Urinary tract infection type: acute cystitis Hematuria presence: without hematuria Qualified Code(s): N30.00 - Acute cystitis without hematuria Will dc if cleared by cardio Condition: Stable - Instructions Referrals: Tamiko Cox MD [Primary Care Provider] - 1 Week Disposition: HOME - Home Medications Comprehensive Discharge Medication List: Ambulatory Orders Rosuvastatin Calcium [Crestor] 5 mg PO DAILY 06/08/15 Metoprolol Succinate [Toprol XL -] 50 mg PO DAILY 09/12/17 Aspirin [ASA -] 325 mg PO DAILY 10/19/17 Isosorbide Mononitrate [Isosorbide Mononitrate ER] 30 mg PO DAILY 03/25/18 Ranolazine [Ranexa -] 500 mg PO BID #60 tab 03/27/18 levoFLOXacin [Levaquin -] 250 mg PO DAILY@0600 #6 tablet 03/27/18
[2018-03-27] MEDS: ISOSORBIDE MONONITRATE 30 MG TAB.SR.24H (FP) PO SCH (10:57)
[2018-03-27] MEDS: RANOLAZINE E.R. 500 MG TABLET (FP) PO SCH (10:57)
[2018-03-27] MEDS: ASPIRIN 325 MG TABLET PO SCH (10:57)
--- NOTE | 2018-03-27 11:57 | PN ---
Progress Note, Physician History of Present Illness: seen and examined today in [facility]. feeling better. mild chest pain on deep inspiration. no overnight events. no new complaints. - Current Medication List Current Medications: Active Medications Aspirin (Asa -) 325 mg PO DAILY [facility] Last Admin: 03/27/18 10:57 Dose: 325 mg Isosorbide Mononitrate (Imdur -) 30 mg PO DAILY [facility] Last Admin: 03/27/18 10:57 Dose: 30 mg Levofloxacin (Levaquin -) 250 mg PO DAILY@0600 [facility] Last Admin: 03/27/18 05:59 Dose: 250 mg Metoprolol Succinate (Toprol Xl -) 50 mg PO [facility] Last Admin: 03/26/18 21:38 Dose: 50 mg Ranolazine (Ranexa -) 500 mg PO BID [facility] Last Admin: 03/27/18 10:57 Dose: 500 mg Rosuvastatin Calcium (Crestor -) 5 mg PO [facility] Last Admin: 03/26/18 21:39 Dose: 5 mg - Objective Vital Signs: Vital Signs Temperature 98 F 03/27/18 09:56 Pulse Rate 62 03/27/18 09:56 Respiratory Rate 20 03/27/18 09:56 Blood Pressure 144/85 03/27/18 09:56 O2 Sat by Pulse Oximetry (%) 98 03/27/18 08:00 Constitutional: Yes: No Distress, Calm Eyes: Yes: Conjunctiva Clear, EOM Intact HENT: Yes: Atraumatic, Normocephalic Neck: Yes: Supple, Trachea Midline Cardiovascular: Yes: Regular Rate and Rhythm, S1, S2. No: Bradycardia, Tachycardia, Pulse Irregular, Bruit, JVD, Gallop, Murmur, Rub, S3, S4, Varicosities Respiratory: Yes: Regular, CTA Bilaterally. No: Rales, Rhonchi, Wheezes Gastrointestinal: Yes: Normal Bowel Sounds, Soft. No: Distention, Tenderness Musculoskeletal: Yes: WNL Extremities: Yes: WNL Edema: No Peripheral Pulses WNL: Yes Peripheral Pulses: Left Doralis Pedis: 2+, Right Dorsalis Pedis: 2+ Neurological: Yes: Alert, Oriented Psychiatric: Yes: Alert, Oriented Labs: CBC, BMP 03/26/18 05:30 03/26/18 05:30 - ....Imaging Chest X-ray: Report Reviewed, Image Reviewed EKG: Report Reviewed, Image Reviewed Other: Report Reviewed, Image Reviewed (tele-nsr, sb 50s, occ PVCs) Assessment/Plan 77 F with ho CVA and angina. A cardiac cath in [facility] after presenting with recurrent chest pain and mildly abnormal stress test reportedly showed small vessel CAD with slow flow as per the patient. She presents now with chest pain on ambulation. IN the past NTG has relieved her CP but she does not use this often. She had been unable to tolerate higher doses of antianginal medications due to headaches and only takes low dose ISMO and metoprolol. Currently CP free. Continue with Isosorbide mono 30mg qd. Can use NTG SL for management of CP. Cont Ranexa 500mg bid to be re-evaluated and uptitrated as needed as outpatient. Continue Toprol, ASA and Statin. Lower ASA 81mg qd.
--- NOTE | 2018-03-27 14:30 | ECHO ---
Name: DANYELLE CARLSON Exam:Adult Echocardiogram Study Date: 03/27/2018 07:46 AM Age: 77 yrs Reason For Study: CHEST PRESSURE Height: 60 in Weight: 182 lb BSA: 1.8 m2 MMode/2D Measurements & Calculations IVSd: 1.0 cm Ao root diam: 2.4 cm LVIDd: 3.8 cm LA dimension: 2.9 cm LVIDs: 2.3 cm LVPWd: 0.87 cm EDV(Teich): 60.6 ml ESV(Teich): 18.5 ml Doppler Measurements & Calculations MV E max solitario: 105.0 cm/sec AI P1/2t: 1190 msec MV A max solitario: 74.7 cm/sec MV E/A: 1.4 MV dec time: 0.12 sec AI max solitario: 346.8 cm/sec TR max solitario: 256.5 cm/sec AI max P.3 mmHg TR max P.3 mmHg AI dec slope: 85.4 cm/sec2 Med Peak E' Solitario: 7.6 cm/sec PI Vmax: 104.5 cm/sec Med E/e': 13.8 Lat Peak E' Solitario: 7.7 cm/sec Lat E/e': 13.6 Procedure A complete two-dimensional transthoracic echocardiogram was performed (2D, M-mode, Doppler and color flow Doppler). The study was technically difficult with many images being suboptimal in quality. Left Ventricle The left ventricular size, thickness and function are normal. Left Ventricular Filling pattern is nor mal for age. The left ventricular wall motion is normal. Right Ventricle The right ventricle is normal in size and function. There is normal right ventricular wall thickness. Atria Normal left and right atrial size and function. Mitral Valve The mitral valve is normal in structure and function. There is trace mitral regurgitation. Tricuspid Valve The tricuspid valve is normal in structure and function. There is trace tricuspid regurgitation. Aortic Valve The aortic valve is normal in structure and function. Trace aortic regurgitation. Pulmonic Valve The pulmonic valve is normal in structure and function. Trace pulmonic valvular regurgitation. Great Vessels The aortic root is normal size. Pericardium/Pleura There is no pericardial effusion. Interpretation Summary The study was technically difficult with many images being suboptimal in quality. The left ventricular size, thickness and function are normal The left ventricular wall motion is normal. The right ventricle is normal in size and function. Denzel Reed 03/27/2018 01:45 PM
--- NOTE | 2018-03-27 16:28 | EKG ---
Test Reason : Blood Pressure : / mmHG Vent. Rate : 070 BPM Atrial Rate : 070 BPM P-R Int : 168 ms QRS Dur : 082 ms QT Int : 414 ms P-R-T Axes : 061 026 026 degrees QTc Int : 447 ms POOR DATA QUALITY, INTERPRETATION MAY BE ADVERSELY AFFECTED NORMAL SINUS RHYTHM NORMAL ECG WHEN COMPARED WITH ECG OF 25-MAR-2018 17:31, NO SIGNIFICANT CHANGE WAS FOUND Confirmed by Denzel Reed ([id number]) on 03/27/2018 4:28:29 PM Referred By: LUCRETIA BAY Confirmed By:Denzel Reed
[2018-03-27 17:56] VITALS: BP 117/71; PULSE 64; TEMP 98.1
== END 2018-03-27 18:25 | disposition home or self-care (01) ==
LOC: JER 15:33 → JERBED 18:37 → J4W 20:53
PROVIDERS: ADMIT Internal Medicine; ATTEND Family Medicine
DX: R07.89 Other chest pain (principal); R06.02 Shortness of breath; N30.00 Acute cystitis without hematuria; I10 Essential (primary) hypertension; I25.10 Atherosclerotic heart disease of native coronary artery without angina pectoris; E78.5 Hyperlipidemia, unspecified; J45.909 Unspecified asthma, uncomplicated; Z87.891 Personal history of nicotine dependence; Z87.442 Personal history of urinary calculi; Z79.82 Long term (current) use of aspirin; Z86.73 Personal history of transient ischemic attack (TIA), and cerebral infarction without residual deficits; Z88.2 Allergy status to sulfonamides; Z91.041 Radiographic dye allergy status
CPT/HCPCS: 36415; 71045-TC-FY; 80048; 80053; 80061; 81003; 81015; 82550; 83036; 83721; 83735; 84100; 84484; 85025; 87086; 93005; 93010; 93306-TC; 99284-25; G0378

== ENCOUNTER 2018-07-14 09:53 | Observation (INO) | payer OTHER, BC ==
[2018-07-14] MEDS ORDERED: SODIUM CHLORIDE 1,000 ML IV STA (11:09)
--- NOTE | 2018-07-14 11:10 | PDOC ---
History of Present Illness <Lauren Maldonado - Last Filed: 07/14/18 14:01> - General History Source: Patient Exam Limitations: No Limitations - History of Present Illness Initial Comments: 07/14/18 16:50 Patient is a 77-year-old female with past medical history of coronary artery disease, reflux, hyperlipidemia, hypertension, who presents to the emergency department today for dizziness, nausea and chest tightness. Patient states that this morning she took a sip of her coffee and felt immediately nauseous and lightheaded. She states that she also felt her chest get tight. Patient states that she also had the sensation of chest tightness yesterday but did not take any of her nitroglycerin because she was not short of breath. She states that today she almost passed out due to the pain nausea and lightheadedness. Currently patient is chest pain-free. Patient states she took a baby aspirin this morning. Denies fevers, chills, upper respiratory symptoms, shortness of breath, difficulty breathing, palpitations, chest pain, nausea, vomiting and diarrhea. <Malaika Merida - Last Filed: 07/14/18 16:59> - General Chief Complaint: Lightheaded Stated Complaint: DIZZINESS, NAUSEA Time Seen by Provider: 07/14/18 10:15 Past History <Lauren Maldonado - Last Filed: 07/14/18 14:01> - Travel Traveled outside of the country in the last 30 days: No Close contact w/someone who was outside of country & ill: No - Past Medical History Asthma: Yes (child) Cardiac Disorders: Yes (angina) CVA: Yes ("mini") COPD: No DVT: No Dementia: No HTN: Yes Hypercholesterolemia: Yes Kidney Stones: Yes - Immunization History Immunization Up to Date: Yes - Suicide/Smoking/Psychosocial Hx Smoking Status: No Smoking History: Never smoked Have you smoked in the past 12 months: No Number of Cigarettes Smoked Daily: 0 If you are a former smoker, when did you quit?: 30 years ago Hx Alcohol Use: No Drug/Substance Use Hx: No Substance Use Type: None Hx Substance Use Treatment: No <Malaika Merida - Last Filed: 07/14/18 16:59> - Past Medical History Allergies/Adverse Reactions: Allergies Allergy/AdvReac Type Severity Reaction Status Date / Time banana [Banana] Allergy Mild Vomiting Verified 07/14/18 10:00 Iodinated Contrast- Oral and Allergy Verified 07/14/18 10:00 IV Dye [Iodinated Contrast Media - IV Dye] Sulfa (Sulfonamide Allergy Verified 07/14/18 10:00 Antibiotics) [Sulfa(Sulfonamide Antibiotics)] Home Medications: Ambulatory Orders Aspirin [ASA -] 81 mg PO DAILY 07/14/18 Isosorbide Mononitrate [Isosorbide Mononitrate ER] 30 mg PO DAILY 07/14/18 Metoprolol Succinate [[place]sp[place] Sprinkle] 50 mg PO DAILY 07/14/18 Nitroglycerin 0.4 mg SL ASDIR 07/14/18 Ranitidine [Zantac -] 150 mg PO DAILY 07/14/18 Rosuvastatin [Crestor -] 5 mg PO HS 07/14/18 Review of Systems - Review of Systems Able to Perform ROS?: Yes Comments:: 07/14/18 11:09 CONSTITUTIONAL: Absent: fever, chills, diaphoresis, generalized weakness, malaise, loss of appetite HEENT: Absent: rhinorrhea, nasal congestion, throat pain, throat swelling, difficulty swallowing, mouth swelling, ear pain, eye pain, visual Changes CARDIOVASCULAR: Present: chest pressure, near syncope Absent: chest pain, loss of consciousness , palpitations, irregular heart rate, peripheral edema RESPIRATORY: Absent: cough, shortness of breath, dyspnea with exertion, orthopnea, wheezing, stridor, hemoptysis GASTROINTESTINAL: Present: nausea Absent: abdominal pain, abdominal distension, nausea, vomiting, diarrhea, constipation, melena, hematochezia GENITOURINARY: Absent: dysuria, frequency, urgency, hesitancy, hematuria, flank pain, genital pain MUSCULOSKELETAL: Absent: myalgia, arthralgia, joint swelling SKIN: Absent: rash, itching, pallor HEMATOLOGIC/IMMUNOLOGIC: Absent: easy bleeding, easy bruising, lymphadenopathy, frequent infections ENDOCRINE: Absent: unexplained weight gain, unexplained weight loss, heat intolerance, cold intolerance NEUROLOGIC: Present: lightheadedness Absent: headache, focal weakness or paresthesias, dizziness, unsteady gait, seizure, mental status changes, bladder or bowel incontinence PSYCHIATRIC: Absent: anxiety, depression, suicidal or homicidal ideation, hallucinations. Is the patient limited [place] proficient: No <Sciliano,Malaika - Last Filed: 07/14/18 16:59> *Physical Exam - Vital Signs Last Vital Signs Temp Pulse Resp BP Pulse Ox 98.4 F 60 18 161/77 99 07/14/18 09:57 07/14/18 09:57 07/14/18 09:57 07/14/18 09:57 07/14/18 09:57 <Lauren Maldonado - Last Filed: 07/14/18 14:01> - Vital Signs Last Vital Signs Temp Pulse Resp BP Pulse Ox 98.4 F 60 18 161/77 99 07/14/18 09:57 07/14/18 09:57 07/14/18 09:57 07/14/18 09:57 07/14/18 09:57 - Physical Exam Comments: 07/14/18 11:09 GENERAL: Well developed, well nourished. Awake and alert. No acute distress. HEENT: Normocephalic, atraumatic. PERRLA, EOMI. No conjunctival pallor. Sclera are non- icteric. Moist mucous membranes. Oropharynx is clear. NECK: Supple. Full ROM. No JVD. Carotid pulses 2+ and symmetric, without bruits. No thyromegaly. No lymphadenopathy. CARDIOVASCULAR: Regular rate and rhythm. No murmurs, rubs, or gallops. Distal pulses are 2+ and symmetric. PULMONARY: No evidence of respiratory distress. Lungs clear to auscultation bilaterally. No wheezing, rales or rhonchi. ABDOMINAL: Soft. Non-tender. Non-distended. No rebound or guarding. No organomegaly. Normoactive bowel sounds. MUSCULOSKELETAL Normal range of motion at all joints. No bony deformities or tenderness. No CVA tenderness. EXTREMITIES: No cyanosis. No clubbing. No edema. No calf tenderness. SKIN: Warm and dry. Normal capillary refill. No rashes. No jaundice. NEUROLOGICAL: Alert, awake, appropriate. Cranial nerves 2-12 intact. No deficits to light touch and temperature in face, upper extremities and lower extremities. No motor deficits in the in face, upper extremities and lower extremities. Normoreflexic in the upper and lower extremities. Normal speech. Toes are down- going bilaterally. Gait is normal without ataxia. PSYCHIATRIC: Cooperative. Good eye contact. Appropriate mood and affect. <Malaika Merida - Last Filed: 07/14/18 16:59> Moderate Sedation - Procedure Monitoring Vital Signs: Procedure Monitoring Vital Signs Temperature 98.4 F 07/14/18 09:57 Pulse Rate 60 07/14/18 09:57 Respiratory Rate 18 07/14/18 09:57 Blood Pressure 161/77 07/14/18 09:57 O2 Sat by Pulse Oximetry (%) 99 07/14/18 09:57 <aLuren Maldonado - Last Filed: 07/14/18 14:01> - Procedure Monitoring Vital Signs: Procedure Monitoring Vital Signs Temperature 98.4 F 07/14/18 09:57 Pulse Rate 60 07/14/18 09:57 Respiratory Rate 18 07/14/18 09:57 Blood Pressure 161/77 07/14/18 09:57 O2 Sat by Pulse Oximetry (%) 99 07/14/18 09:57 <Malaika Merida - Last Filed: 07/14/18 16:59> Heart Score/ECG Review - History History: Moderately suspicious - Electrocardiogram EKG: Normal - Age Age: >/= 65 - Risk Factors Risk Factors Heart Score: Yes Hx Hypercholesterolemia, Yes Hx Hypertension Based on the list above the patient has:: 1-2 risk factors - Troponin Troponin: </= normal limit - Score Heart Score - Total: 4 <Malaika Merida - Last Filed: 07/14/18 16:59> ED Treatment Course - LABORATORY CBC & Chemistry Diagram: 07/14/18 11:30 07/14/18 11:30 - ADDITIONAL ORDERS Additional order review: Laboratory Results 07/14/18 07/14/18 07/14/18 11:30 11:30 11:30 PT with INR INR Sodium 140 Potassium 4.7 Chloride 106 Carbon Dioxide 29 Anion Gap 5 L BUN 16 Creatinine 0.9 Creat Clearance w eGFR > 60 Random Glucose 86 Calcium 9.0 Magnesium 2.1 Total Bilirubin 0.7 AST 18 ALT 20 Alkaline Phosphatase 68 Creatine Kinase 82 Troponin I < 0.02 Total Protein 6.8 Albumin 3.5 Urine Color Straw Urine Appearance Clear Urine pH 6.0 Ur Specific [place] 1.004 L Urine Protein Negative Urine Glucose (UA) Negative Urine Ketones Negative Urine Blood 2+ H Urine Nitrite Negative Urine Bilirubin Negative Urine Urobilinogen Negative Ur Leukocyte Esterase Negative Urine WBC (Auto) 1 Urine RBC (Auto) 1 Ur Epithelial Cells Rare 07/14/18 11:30 PT with INR 10.80 INR 0.92 Sodium Potassium Chloride Carbon Dioxide Anion Gap BUN Creatinine Creat Clearance w eGFR Random Glucose Calcium Magnesium Total Bilirubin AST ALT Alkaline Phosphatase Creatine Kinase Troponin I Total Protein Albumin Urine Color Urine Appearance Urine pH Ur Specific [place] Urine Protein Urine Glucose (UA) Urine Ketones Urine Blood Urine Nitrite Urine Bilirubin Urine Urobilinogen Ur Leukocyte Esterase Urine WBC (Auto) Urine RBC (Auto) Ur Epithelial Cells 07/14/18 11:30 RBC 4.62 MCV 84.0 MCHC 32.2 RDW 14.2 MPV 8.1 Neutrophils % 62.7 D Lymphocytes % 21.5 D Monocytes % 10.5 H Eosinophils % 4.2 Basophils % 1.1 - Medications Given in the ED: ED Medications Discontinued Medications Generic Name Dose Route Start Last Admin Trade Name Freq PRN Reason Stop Dose Admin Sodium Chloride 1,000 mls @ 1,000 mls/hr 07/14/18 11:09 07/14/18 11:49 Normal Saline - IV 07/14/18 12:08 1,000 mls/hr ASDIR STA Administration <Lauren Maldonado - Last Filed: 07/14/18 14:01> - LABORATORY CBC & Chemistry Diagram: 07/14/18 11:30 07/14/18 11:30 <Malaika Merida - Last Filed: 07/14/18 16:59> Medical Decision Making - Medical Decision Making 07/14/18 13:[address] Cox's answering service, made aware CONCEPCIÓN Castro is contractor buyer, awaiting call back. 07/14/18 14:01 Second call placed to Dr. Cox's service, case discussed with CONCEPCIÓN Mariscal. <Lauren Maldonado - Last Filed: 07/14/18 14:01> - Medical Decision Making 07/14/18 13:52 Pt is a 77 y/o F with PMH of CAD, angina, HTN, HLD, GERD, who presents to the ED for a near syncopal episode in the setting of chest pressure -Exam: lungs CTAB, - w/r/r. Heart: RRR, S1,S2 present no murmur -EKG: Rate 58 BPM, sinus rhythm. No acute ST-T wave intervals, normal axis and intervals -1st troponin negative, electrolytes WNL. No leukocytosis or shift. -Pt currently chest pain/pressure free at this time. Resting comfortably -Chest x-ray with no acute pathology at this time. -Heart score 4 -Given presenting illness and hx of CAD/angina plus near syncope, concerning for possible cardiac cause -Case discussed with Dr. Araiza who recommends tele obs at this time -Case discussed with CONCEPCIÓN Mariscal who agrees to Tele/obs placement. <Malaika Merida - Last Filed: 07/14/18 16:59> *DC/Admit/Observation/Transfer - Attestations Scribe Attestion: 07/14/18 13:45 Documentation prepared by Lauren Maldonado, acting as medical records director for Danielle Wilburn MD. <Lauren Maldonado - Last Filed: 07/14/18 14:01> - Discharge Dispostion Decision to Admit order: Yes <Malaika Merida - Last Filed: 07/14/18 16:59> Diagnosis at time of Disposition: Near syncope, Chest tightness CAD (coronary artery disease) Qualifiers: Coronary Disease-Associated Artery/Lesion type: [place] artery [place] vs. transplanted heart: [place] heart Associated angina: with unstable angina Qualified Code(s): I25.110 - Atherosclerotic heart disease of [place] coronary artery with unstable angina pectoris - Discharge Dispostion Condition at time of disposition: Stable
[2018-07-14 11:48] LABS: BASO % 1.1 % (0-2.0); EOS % 4.2 % (0-4.5); HEMATOCRIT 38.8 % (32.4-45.2); HEMOGLOBIN 12.5 GM/dL (10.7-15.3); LYMPH % 21.5 % (8-40); MCHC 32.2 g/dl (32.0-36.0); MEAN PLT VOLUME 8.1 fl (7.5-11.1); MONO % 10.5 % (3.8-10.2); NEUT % 62.7 % (42.8-82.8); PLATELET COUNT 208 K/MM3 (134-434); RBC 4.62 M/mm3 (3.60-5.2); RDW 14.2 % (11.6-15.6); WHITE BLOOD COUNT 5.8 K/mm3 (4.0-10.0)
[2018-07-14 12:01] LABS: INR 0.92 (0.83-1.09); PROTHROMBIN TIME (PATIENT) 10.8 SEC (9.7-13.0)
[2018-07-14 12:14] LABS: ALBUMIN 3.5 g/dl (3.4-5.0); ALK PHOS 68 U/L (45-117); ANION GAP 5 MMOL/L (8-16); BILIRUBIN,TOTAL 0.7 mg/dL (0.2-1); BLOOD UREA NITROGEN 16 mg/dL (7-18); CHLORIDE 106 mmol/L (98-107); CO2 29 mmol/L (21-32); CREATININE 0.9 mg/dL (0.55-1.3); GLUCOSE,RANDOM 86 mg/dL (74-106); MAGNESIUM 2.1 mg/dL (1.8-2.4); POTASSIUM 4.7 mmol/L (3.5-5.1); SGOT/AST 18 U/L (15-37); SGPT/ALT 20 U/L (13-61); SODIUM 140 mmol/L (136-145); TOT PROT 6.8 g/dl (6.4-8.2)
[2018-07-14 12:31] LABS: URINE APPEARANCE CLEAR; URINE BILIRUBIN NEGATIVE (<2.0 mg/dL); URINE COLOR STRAW; URINE GLUCOSE (UA) NEGATIVE (NEGATIVE); URINE KETONE NEGATIVE (NEGATIVE); URINE LEUK ESTERASE NEGATIVE (NEGATIVE); URINE NITRITE NEGATIVE (NEGATIVE); URINE PROTEIN NEGATIVE (NEGATIVE); URINE UROBILINOGEN NEGATIVE mg/dL (0.2-1.0)
[2018-07-14 13:28] LABS: EPI CELLS RARE /HPF (FEW)
--- NOTE | 2018-07-14 15:42 | EKG ---
Test Reason : Blood Pressure : / mmHG Vent. Rate : 058 BPM Atrial Rate : 058 BPM P-R Int : 158 ms QRS Dur : 082 ms QT Int : 410 ms P-R-T Axes : 015 018 020 degrees QTc Int : 402 ms SINUS BRADYCARDIA OTHERWISE NORMAL ECG WHEN COMPARED WITH ECG OF 26-MAR-2018 18:38, NO SIGNIFICANT CHANGE WAS FOUND Confirmed by KWAKU RICHARDSON MD ([id number]) on 07/14/2018 3:41:37 PM Referred By: Confirmed By:KWAKU RICHARDSON MD
--- NOTE | 2018-07-14 20:07 | HP ---
Admitting History and Physical - Primary Care Physician PCP: Tamiko Cox - Admission Chief Complaint: Near syncopal episode History of Present Illness: 77 y/o female with past medical history of CAD, reflux, HLD, HTN. Patient presented to ED with complaints of dizziness and chest tightness. Patient states the chest tightness began last night and continued upon awakening. Has home prescription of nitroglycerin but did not take it because she was not feeling short of breath. Experienced dizziness this morning and felt like she was going to pass out. On current examination denies chest tightness. 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 Cardiovascular: Yes: HTN, Hyperlipdemia - Past Surgical History Past Surgical History: Yes: Hysterectomy, Tonsillectomy - Smoking History Smoking history: Never smoked Have you smoked in the past 12 months: No Aproximately how many cigarettes per day: 0 If you are a former smoker, when did you quit?: 30 years ago - Alcohol/Substance Use Hx Alcohol Use: No History of Substance Use: reports: None - Social History ADL: Independent History of Recent Travel: No Home Medications - Allergies Allergies/Adverse Reactions: Allergies Allergy/AdvReac Type Severity Reaction Status Date / Time banana [Banana] Allergy Mild Vomiting Verified 07/14/18 10:00 Iodinated Contrast- Oral and Allergy Verified 07/14/18 10:00 IV Dye [Iodinated Contrast Media - IV Dye] Sulfa (Sulfonamide Allergy Verified 07/14/18 10:00 Antibiotics) [Sulfa(Sulfonamide Antibiotics)] - Home Medications Home Medications: Ambulatory Orders Aspirin [ASA -] 81 mg PO DAILY 07/14/18 Isosorbide Mononitrate [Isosorbide Mononitrate ER] 30 mg PO DAILY 07/14/18 Metoprolol Succinate [Kapspargo Sprinkle] 50 mg PO DAILY 07/14/18 Nitroglycerin 0.4 mg SL ASDIR 07/14/18 Ranitidine [Zantac -] 150 mg PO DAILY 07/14/18 Rosuvastatin [Crestor -] 5 mg PO HS 07/14/18 Family Disease History - Family Disease History Family Disease History: Heart Disease: Grandparent (ID, Pancreatic Ca), CA: Grandparent, Father (Prostate) Physical Examination Vital Signs: Vital Signs Temperature 98.4 F 07/14/18 09:57 Pulse Rate 62 07/14/18 18:55 Respiratory Rate 16 07/14/18 18:55 Blood Pressure 123/86 07/14/18 18:55 O2 Sat by Pulse Oximetry (%) 99 07/14/18 18:55 Constitutional: Yes: Well Nourished, No Distress, Calm Eyes: Yes: Conjunctiva Clear Neck: Yes: Supple Cardiovascular: Yes: Regular Rate and Rhythm Respiratory: Yes: Regular, CTA Bilaterally Gastrointestinal: Yes: Normal Bowel Sounds, Soft Musculoskeletal: Yes: WNL Extremities: Yes: WNL Edema: No Peripheral Pulses WNL: Yes Peripheral Pulses: Left Doralis Pedis: 2+, Right Dorsalis Pedis: 2+ Neurological: Yes: Alert, Oriented Psychiatric: Yes: Alert, Oriented Labs: CBC, BMP 07/14/18 11:30 07/14/18 11:30 Imaging - Results EKG: Report Reviewed Problem List - Problems (1) CAD (coronary artery disease) Code(s): I25.10 - ATHSCL HEART DISEASE OF [place] CORONARY ARTERY W/O ANG PCTRS Qualifiers: Coronary Disease-Associated Artery/Lesion type: [place] artery [place] vs. transplanted heart: [place] heart Associated angina: with unstable angina Qualified Code(s): I25.110 - Atherosclerotic heart disease of [place] coronary artery with unstable angina pectoris (2) Chest tightness Code(s): R07.89 - OTHER CHEST PAIN (3) Near syncope Code(s): R55 - SYNCOPE AND COLLAPSE (4) HLD (hyperlipidemia) Code(s): E78.5 - HYPERLIPIDEMIA, UNSPECIFIED (5) HTN (hypertension) Code(s): I10 - ESSENTIAL (PRIMARY) HYPERTENSION Assessment/Plan -admit to tele unit -CXR and urine culture pending -cardiology consult pending -cont with isosorbide mononitrate and metoprolol succinate -nitro SL prn -rosuvastatin 5mg qhs -dvt ppx
[2018-07-14] MEDS ORDERED: NITROGLYCERIN SUBLINGUAL 1/150 0.4 MG TAB SL PRN (20:25)
[2018-07-14] MEDS: ROSUVASTATIN CA 5 MG TABLET (FP) PO SCH (22:25)
[2018-07-15 04:19] VITALS: BMI 35.2
[2018-07-15 07:55] LABS: BASO % 1.2 % (0-2.0); HEMATOCRIT 36.5 % (32.4-45.2); HEMOGLOBIN 12.4 GM/dL (10.7-15.3); LYMPH % 28.9 % (8-40); MCH 28.5 pg (25.7-33.7); MCHC 34.1 g/dl (32.0-36.0); MEAN CELL VOLUME 83.4 fl (80-96); MONO % 10.6 % (3.8-10.2); NEUT % 53.3 % (42.8-82.8); PLATELET COUNT 207 K/MM3 (134-434); RBC 4.37 M/mm3 (3.60-5.2); RDW 13.8 % (11.6-15.6); WHITE BLOOD COUNT 4.6 K/mm3 (4.0-10.0)
[2018-07-15 08:50] LABS: ALBUMIN 3.2 g/dl (3.4-5.0); ALK PHOS 60 U/L (45-117); ANION GAP 7 MMOL/L (8-16); BILIRUBIN,TOTAL 0.8 mg/dL (0.2-1); BLOOD UREA NITROGEN 18 mg/dL (7-18); CALCIUM 8.6 mg/dL (8.5-10.1); CHLORIDE 108 mmol/L (98-107); CO2 27 mmol/L (21-32); CREATININE 0.8 mg/dL (0.55-1.3); GLUCOSE,RANDOM 82 mg/dL (74-106); SGOT/AST 15 U/L (15-37); SGPT/ALT 19 U/L (13-61); SODIUM 142 mmol/L (136-145); TOT PROT 6.1 g/dl (6.4-8.2)
[2018-07-15] MEDS: ISOSORBIDE MONONITRATE 30 MG TAB.SR.24H (FP) PO SCH (09:03)
[2018-07-15] MEDS: RANITIDINE HCL 150 MG TABLET (FP) PO SCH (09:03)
--- NOTE | 2018-07-15 09:40 | CONS ---
CARDIOLOGY CONSULTATION DATE OF CONSULTATION: 07/14/2018 Consultation requested by Tamiko Cox MD. CHIEF COMPLAINT: 1. Chest pain. 2. Dizziness. HISTORY OF PRESENT ILLNESS: The patient is a 77-year-old female with history of chest pain syndrome compatible with angina pectoris, hypertension, hypertensive cardiovascular disease, hypercholesterolemia, history of cerebrovascular accident, developed anterior, pressure-like chest pain that started a day prior to admission. Pains were recurring, nonradiating, at times accompanied by mild dyspnea. On July 13, she had several episodes that lasted between 30 to 45 minutes. There was no associated diaphoresis, nausea, vomiting. This morning, she woke up with similar pain accompanied by lightheadedness/dizziness and a sense that she may fall down. Pain was persistent and was again associated with mild shortness of breath and a generalized tingling sensation. Patient states that the day prior to admission, she did experience chest pain while she was walking. There is no history of diabetes mellitus. No history of palpitations, presyncope or syncope. No history of paroxysmal nocturnal dyspnea or orthopnea. PAST HISTORY: As mentioned in the history of present illness. SURGICAL HISTORY: Status post tonsillectomy. Status post hysterectomy. SOCIAL HISTORY: She is a . Had 2 sons and a daughter. Both sons are ; one during an automobile accident at the age of 4. The other son because of a mugging incident, and according to the patient, he went into coma after receiving morphine in hospital. Daughter is alive and healthy. FAMILY HISTORY: Father at the age of 100. He was hypertensive and due to complications of prostatic carcinoma. Mother at age 94 due to complications of colon cancer. She also was hypertensive. The patient is the only child. ALLERGIES: SULFA. IVP CONTRAST. PATIENT IS INTOLERANT OF BANANAS; CAUSES VOMITING. She denies being allergic to shellfish. MEDICATIONS: 1. Aspirin 81 mg p.o. daily. 2. Isosorbide mononitrate 30 mg p.o. daily. 3. Metoprolol succinate 50 mg p.o. daily. 4. Nitrostat 0.4 mg sublingually p.r.n. for chest discomfort. 5. Ranitidine 150 mg p.o. daily. 6. Rosuvastatin 5 mg p.o. daily. REVIEW OF SYSTEMS: Constitutional: No history of chills, fever or night sweats. No history of unintentional weight loss. HEENT: History of occasional left frontal headaches, history of sinusitis. No history of epistaxis. No history of blurring of vision or diplopia. History of intermittent hoarseness, apparently related to GERD. No history of tinnitus or deafness. Cardiovascular System: See history of present illness. Respiratory System: No history of cough, expectoration or hemoptysis. Gastrointestinal System: History of gastroesophageal reflux. No history of nausea, vomiting, melena or hematemesis. No history of abdominal pain or discomfort. No history of change in bowel habits. Neurological System: History of a cerebrovascular accident, residual dysarthria, and expressive aphasia. No history of seizures or syncope. Musculoskeletal System: No history of myalgias or arthralgias. Genitourinary System: No history of dysuria, frequency, hematuria or urgency. Endocrine: No history of polyuria or polydipsia. No history of intolerance to cold or warm weather. Hematological System: No history of anemia, bleeding. Patient noted ecchymosis on the dorsum of the left hand. EXAMINATION: General: A 77-year-old, obese female who was in no acute distress. No pallor, cyanosis, clubbing or jaundice. Vital Signs: Weight 183 pounds. Blood pressure 161/77 mmHg. Pulse 60 beats per minute and regular. Temperature 98.4 degrees Fahrenheit. Oxygen saturation was 99% on room air. Neck: Supple. No jugular venous distention. Carotids were 2+. Upstrokes were normal. No bruits were heard and no thyromegaly was present. Heart: PMI was in the 5th intercostal space. No heaves or thrills. S1 and S2 were normal. A grade 1/6 systolic ejection murmur was heard at the 2nd right intercostal space ending in early systole. No diastolic murmur or gallops were heard. Lungs: Clear on auscultation. Chest: Normal A/P diameter. Expansion was symmetrical. Abdomen: Bowel sounds were present. No bruits were heard. Extremities: No calf tenderness or dependent edema. Pulses were equal. Dorsalis pedis pulses were 1+, posterior tibial pulses were weak. There were bilateral varicosities, more pronounced on the right lower extremity. ECG: Sinus bradycardia at 58 beats per minute, normal ST and T waves. LABORATORY DATA: CBC: WBC count 5800, hemoglobin 12.5 g/dL, platelet count 208,000. Differential was normal, except there were elevated monocytes at 10.5%. Chemistry: Sodium 140, potassium 4.7, chloride 107, CO2 of 29 mmol/L, BUN 16, . Normal liver function tests. CK was 82, troponin was less than 0.02. IMAGING: X-ray chest is pending. IMPRESSION: 1. Chest pain syndrome. Clinical presentation compatible with coronary artery disease, angina pectoris. 2. Hypertension, with elevated systolic blood pressure. 3. Hypercholesterolemia. 4. Gastroesophageal reflux disease. 5. Exogenous obesity. 6. Status post cerebrovascular accident. RECOMMENDATIONS: Admit to telemetry. Serial EKGs and enzymes. Continue medications as outlined. Stat ECG during episode of chest pain, followed by sublingual nitroglycerin. Lipid profile. Further suggestions will depend upon the results of the above-mentioned tests. If blood pressure remains elevated, additional therapy will need to be considered. Thank you for your referral. KYLE MCMAHON M.D. [id number]
[2018-07-15] MEDS ORDERED: ASPIRIN 81 MG CHEWABLE TABLETS PO SCH (10:00)
[2018-07-15] MEDS ORDERED: ACETAMINOPHEN 325 MG TABLET (FP) PO PRN (17:44)
--- NOTE | 2018-07-15 17:49 | PN ---
Progress Note, Physician Chief Complaint: Previous notes and events reviewed awake and alert NAD No complaints of chest pain on examination - Current Medication List Current Medications: Active Medications Acetaminophen (Tylenol -) 650 mg PO Q4H PRN PRN Reason: HEADACHE Stop: 07/18/18 17:43 Aspirin (Asa -) 81 mg PO DAILY [facility] Last Admin: 07/15/18 09:03 Dose: Not Given Isosorbide Mononitrate (Imdur -) 30 mg PO DAILY [facility] Last Admin: 07/15/18 09:03 Dose: 30 mg Metoprolol Succinate (Toprol Xl -) 50 mg PO DAILY [facility] Last Admin: 07/15/18 09:03 Dose: 50 mg Nitroglycerin (Nitrostat -) 0.4 mg SL Q5M PRN PRN Reason: FOR CHEST PAIN Ranitidine HCl (Zantac -) 150 mg PO DAILY [facility] Last Admin: 07/15/18 09:03 Dose: 150 mg Rosuvastatin Calcium (Crestor -) 5 mg PO HS [facility] Last Admin: 07/14/18 22:25 Dose: 5 mg - Objective Vital Signs: Vital Signs Temperature 97.7 F 07/15/18 17:00 Pulse Rate 56 L 07/15/18 17:00 Respiratory Rate 20 07/15/18 17:00 Blood Pressure 123/63 07/15/18 17:00 O2 Sat by Pulse Oximetry (%) 96 07/15/18 09:00 Constitutional: Yes: Well Nourished, No Distress, Calm Eyes: Yes: Conjunctiva Clear Neck: Yes: Supple Cardiovascular: Yes: Regular Rate and Rhythm Respiratory: Yes: Regular, CTA Bilaterally Gastrointestinal: Yes: WNL, Soft Musculoskeletal: Yes: WNL Extremities: Yes: WNL Edema: No Neurological: Yes: Alert, Oriented Psychiatric: Yes: Alert, Oriented Labs: CBC, BMP 07/15/18 05:50 07/15/18 05:50 INR, PTT INR 0.92 (0.83-1.09) 07/14/18 11:30 Problem List - Problems (1) CAD (coronary artery disease) Code(s): I25.10 - ATHSCL HEART DISEASE OF [place] CORONARY ARTERY W/O ANG PCTRS Qualifiers: Qualified Code(s): I25.110 - Atherosclerotic heart disease of [place] coronary artery with unstable angina pectoris (2) Chest tightness Code(s): R07.89 - OTHER CHEST PAIN (3) Near syncope Code(s): R55 - SYNCOPE AND COLLAPSE (4) HLD (hyperlipidemia) Code(s): E78.5 - HYPERLIPIDEMIA, UNSPECIFIED (5) HTN (hypertension) Code(s): I10 - ESSENTIAL (PRIMARY) HYPERTENSION Assessment/Plan -CXR and urine culture pending -cardiology on board -cardiac enzymes drawn-trop neg x 2 -cont with isosorbide mononitrate and metoprolol succinate -nitro SL prn -rosuvastatin 5mg qhs -dvt ppx
--- NOTE | 2018-07-15 17:56 | PN ---
Progress Note (short form) - Note Progress Note: 77 year old female admitted with chest discomfort associated with mild SOB and lightheadedness( refer to consult). Known case of HTN, s/p CVA, hypercholesterolemiaand h/o angina pectoris. No further chest pain or discomfort, no lightheadedness or SOB Active Medications Acetaminophen (Tylenol -) 650 mg PO Q4H PRN PRN Reason: HEADACHE Stop: 07/18/18 17:43 Last Admin: 07/15/18 17:49 Dose: 650 mg Aspirin (Asa -) 81 mg PO DAILY [facility] Last Admin: 07/15/18 09:03 Dose: Not Given Isosorbide Mononitrate (Imdur -) 30 mg PO DAILY [facility] Last Admin: 07/15/18 09:03 Dose: 30 mg Metoprolol Succinate (Toprol Xl -) 50 mg PO DAILY [facility] Last Admin: 07/15/18 09:03 Dose: 50 mg Nitroglycerin (Nitrostat -) 0.4 mg SL Q5M PRN PRN Reason: FOR CHEST PAIN Ranitidine HCl (Zantac -) 150 mg PO DAILY [facility] Last Admin: 07/15/18 09:03 Dose: 150 mg Rosuvastatin Calcium (Crestor -) 5 mg PO HS [facility] Last Admin: 07/14/18 22:25 Dose: 5 mg Last Vital Signs Temp Pulse Resp BP Pulse Ox 97.7 F 56 L 20 123/63 96 07/15/18 17:00 07/15/18 17:00 07/15/18 17:00 07/15/18 17:00 07/15/18 09:00
[2018-07-15] MEDS: ROSUVASTATIN CA 5 MG TABLET (FP) PO SCH (22:04)
[2018-07-16 05:26] VITALS: TEMP 98
--- NOTE | 2018-07-16 07:13 | EKG ---
Test Reason : Blood Pressure : / mmHG Vent. Rate : 064 BPM Atrial Rate : 064 BPM P-R Int : 178 ms QRS Dur : 082 ms QT Int : 408 ms P-R-T Axes : 050 017 020 degrees QTc Int : 420 ms SINUS RHYTHM WITH PREMATURE ATRIAL COMPLEXES OTHERWISE NORMAL ECG WHEN COMPARED WITH ECG OF 14-JUL-2018 11:23, PREMATURE ATRIAL COMPLEXES ARE NOW PRESENT Confirmed by DEBRA HONEYCUTT, KWAKU ([id number]) on 07/16/2018 7:13:19 AM Referred By: Lucinda ROSA Confirmed By:KWAKU RICHARDSON MD
[2018-07-16] MEDS: RANITIDINE HCL 150 MG TABLET (FP) PO SCH (10:23)
[2018-07-16] MEDS: ISOSORBIDE MONONITRATE 30 MG TAB.SR.24H (FP) PO SCH (10:23)
[2018-07-16 10:26] VITALS: BP 146/70; PULSE 68
[2018-07-16] MEDS ORDERED: ASPIRIN 325 MG TABLET PO SCH (10:45)
--- NOTE | 2018-07-16 11:24 | PN ---
Progress Note, Physician Chief Complaint: Chest Pain History of Present Illness: NAD walking in the hallway denies chest pain, SOB or dizziness - Current Medication List Current Medications: Active Medications Acetaminophen (Tylenol -) 650 mg PO Q4H PRN PRN Reason: HEADACHE Stop: 07/18/18 17:43 Last Admin: 07/15/18 17:49 Dose: 650 mg Aspirin (Asa -) 325 mg PO DAILY [facility] Last Admin: 07/16/18 11:17 Dose: 325 mg Isosorbide Mononitrate (Imdur -) 30 mg PO DAILY [facility] Last Admin: 07/16/18 10:23 Dose: 30 mg Metoprolol Succinate (Toprol Xl -) 50 mg PO DAILY [facility] Last Admin: 07/16/18 10:23 Dose: 50 mg Nitroglycerin (Nitrostat -) 0.4 mg SL Q5M PRN PRN Reason: FOR CHEST PAIN Ranitidine HCl (Zantac -) 150 mg PO DAILY [facility] Last Admin: 07/16/18 10:23 Dose: 150 mg Rosuvastatin Calcium (Crestor -) 5 mg PO HS [facility] Last Admin: 07/15/18 22:04 Dose: 5 mg - Objective Vital Signs: Vital Signs Temperature 98 F 07/16/18 09:00 Pulse Rate 68 07/16/18 09:00 Respiratory Rate 20 07/16/18 09:00 Blood Pressure 146/70 07/16/18 09:00 O2 Sat by Pulse Oximetry (%) 96 07/15/18 20:32 Constitutional: Yes: Well Nourished, No Distress, Calm Cardiovascular: Yes: Regular Rate and Rhythm Respiratory: Yes: Regular Gastrointestinal: Yes: Normal Bowel Sounds, Soft Genitourinary: Yes: WNL Musculoskeletal: Yes: WNL Extremities: Yes: WNL Edema: No Peripheral Pulses WNL: Yes Neurological: Yes: Alert, Oriented Psychiatric: Yes: Alert, Oriented Labs: CBC, BMP 07/15/18 05:50 07/15/18 05:50 INR, PTT INR 0.92 (0.83-1.09) 07/14/18 11:30 Problem List - Problems (1) CAD (coronary artery disease) Assessment/Plan: -Seen by Cardiology -On Statin, aspirin and BB Code(s): I25.10 - ATHSCL HEART DISEASE OF [place] CORONARY ARTERY W/O ANG PCTRS Qualifiers: Coronary Disease-Associated Artery/Lesion type: [place] artery Tribe vs. transplanted heart: [place] heart Associated angina: with unstable angina Qualified Code(s): I25.110 - Atherosclerotic heart disease of [place] coronary artery with unstable angina pectoris (2) Atypical chest pain Assessment/Plan: -Serial EKG and troponins negative -No events on Tele -Seen by Cardiology -Symptoms resolved Code(s): R07.89 - OTHER CHEST PAIN Assessment/Plan see problem list d/c home and f/u with cardiology within 2 week.
== END 2018-07-16 13:21 | disposition home or self-care (01) ==
LOC: JER 09:53 → JERBED 13:28 → J4W 07-15 03:43
PROVIDERS: ADMIT Family Medicine; ATTEND Family Medicine
PROC: 3E0337Z Introduction of Electrolytic and Water Balance Substance into Peripheral Vein, Percutaneous Approach (ICD-10-PCS; principal; 2018-07-14)
DX: I25.110 Atherosclerotic heart disease of native coronary artery with unstable angina pectoris (principal); R55 Syncope and collapse; R07.89 Other chest pain; I10 Essential (primary) hypertension; E78.5 Hyperlipidemia, unspecified; K21.9 Gastro-esophageal reflux disease without esophagitis; Z88.2 Allergy status to sulfonamides; Z91.041 Radiographic dye allergy status; Z86.73 Personal history of transient ischemic attack (TIA), and cerebral infarction without residual deficits; Z79.82 Long term (current) use of aspirin; Z87.442 Personal history of urinary calculi; E66.09 Other obesity due to excess calories; Z68.35 Body mass index [BMI] 35.0-35.9, adult
CPT/HCPCS: 36415; 71046-TC-FY; 80053; 81003; 81015; 82550; 83735; 84484; 85025; 85610; 87086; 93005; 93010; 96360; 99283-25; G0378; J7030

== ENCOUNTER 2019-01-15 18:34 | Emergency (ER) | payer OTHER, BC | END 2019-01-16 01:45 | disposition home or self-care (01) | LOC: JER 01-16 01:45 | PROC: 3E033GC Introduction of Other Therapeutic Substance into Peripheral Vein, Percutaneous Approach (ICD-10-PCS; principal; 2019-01-15) | PROC: 3E0333Z Introduction of Anti-inflammatory into Peripheral Vein, Percutaneous Approach (ICD-10-PCS; 2019-01-15) | DX: R51 Headache (principal); M54.2 Cervicalgia; I25.119 Atherosclerotic heart disease of native coronary artery with unspecified angina pectoris; I10 Essential (primary) hypertension; E78.5 Hyperlipidemia, unspecified; Z86.73 Personal history of transient ischemic attack (TIA), and cerebral infarction without residual deficits ==

== ENCOUNTER 2019-06-07 07:25 | Emergency (ER) | payer OTHER, BC ==
[2019-06-07 07:35] VITALS: BMI 33.5
[2019-06-07] MEDS ORDERED: DEXAMETHASONE SOD PHOSPHATE 4 MG/1 ML VIAL IM ONE (08:56)
[2019-06-07] MEDS ORDERED: CYCLOBENZAPRINE HCL 10 MG TABLET (FP) PO ONE (08:56)
[2019-06-07] MEDS ORDERED: DEXAMETHASONE SOD PHOSPHATE 4 MG/1 ML VIAL ONE (09:06)
[2019-06-07] MEDS ORDERED: CYCLOBENZAPRINE HCL 10 MG TABLET (FP) ONE (09:06)
--- NOTE | 2019-06-07 09:11 | PDOC ---
History of Present Illness - General Chief Complaint: Back Pain Stated Complaint: LOWER EXTREMITY PAIN LEFT SIDE Time Seen by Provider: 06/07/19 08:24 History Source: Patient Exam Limitations: No Limitations - History of Present Illness Initial Comments: 06/08/19 12:08 HPI: 78F PMH HTN HLD and spinal stenosis c/o 5 days of back pain that was initially alleviated w/ lidocaine patch. Pain became to constant, sharp, 10/10 w/ radiation to left waist and upper leg; unrelieved by patch 2 days ago. Worsened w/ movement. Denies f/c, numbness, tingling, weakness, bowel/bladder incontinence. No recent falls or trauma MEDS reviewed w/ patient Unable to take NSAIDs per PCP PCP - Dr. Cox Allergies reviewed Past History - Past Medical History Allergies/Adverse Reactions: Allergies Allergy/AdvReac Type Severity Reaction Status Date / Time banana [Banana] Allergy Mild Vomiting Verified 06/07/19 07:30 Iodinated Contrast Media Allergy Verified 06/07/19 07:30 [Iodinated Contrast Media - IV Dye] Sulfa (Sulfonamide Allergy Verified 06/07/19 07:30 Antibiotics) [Sulfa(Sulfonamide Antibiotics)] Home Medications: Ambulatory Orders Aspirin [ASA -] 325 mg PO DAILY 07/14/18 Isosorbide Mononitrate [Isosorbide Mononitrate ER] 30 mg PO DAILY 07/14/18 Metoprolol Succinate [[place] Sprinkle] 25 mg PO DAILY 07/14/18 Rosuvastatin [Crestor -] 5 mg PO HS 07/14/18 Naproxen Sodium [Aleve] 220 mg PO BID 01/15/19 Lidocaine 5% Patch [Lidoderm Patch -] 1 patch TP DAILY #7 patch 01/16/19 Cyclobenzaprine HCl [Flexeril -] 5 mg PO TID #15 tablet 06/07/19 Methylprednisolone [Medrol Dose Pipo] 4 mg PO ASDIR #21 tablet 06/07/19 Tramadol HCl [Ultram] 25 mg BID 06/07/19 Asthma: Yes (child) Cardiac Disorders: Yes (angina) CVA: Yes ("mini") COPD: No DVT: No Dementia: No HTN: Yes Hypercholesterolemia: Yes Kidney Stones: Yes - Immunization History Immunization Up to Date: Yes - Psycho Social/Smoking Cessation Hx Smoking Status: No Smoking History: Former smoker Have you smoked in the past 12 months: No Number of Cigarettes Smoked Daily: 0 If you are a former smoker, when did you quit?: 40 Information on smoking cessation initiated: No Hx Alcohol Use: No Drug/Substance Use Hx: No Substance Use Type: Alcohol Hx Substance Use Treatment: No Review of Systems - Review of Systems Able to Perform ROS?: Yes Comments:: 06/08/19 12:08 ROS: CONSTITUTIONAL: Denies F / C RESP: Denies SOB CARD: Denies chest pain, palpitations GI: Denies N / V / D, abdominal pain, bowel incontinence : Denies dysuria, frequency, bladder incontinence SKIN: Denies rashes NEURO: Denies numbness, tingling, weakness MSK: Endorse back pain Is the patient limited [place] proficient: No *Physical Exam - Vital Signs Last Vital Signs Temp Pulse Resp BP Pulse Ox 98.2 F 80 17 125/59 L 99 06/07/19 07:32 06/07/19 07:32 06/07/19 07:32 06/07/19 07:32 06/07/19 07:32 - Physical Exam Comments: 06/08/19 12:08 PE: GEN: Well appearing, NAD, comfortable. AAOx3 HEENT: NC/AT, EOMI, PERRLA. No facial asymmetry. Moist mucous membranes. Normal voice. Supple neck w/ FROM. CV: S1/S2, RRR, no m/r/g LUNG: CTAB, no wheezes, crackles, rales, rhonchi. GI: soft, ndnt, +BS, no guarding, no rebound. No masses. EXTREMITIES: No LE edema. No calf TTP. No obvious deformities of all extremities. BACK: no step offs, no midline TTP. + paraspinal TTP, left hip. NEURO: Moving all extremities well. 5/5 strength LE b/l. symmetric sensation. + DTRs SKIN: warm, dry, normal turgor PSYCH: normal mood and affect ED Treatment Course - RADIOLOGY Radiology Studies Ordered: Category Date Time Status SPINE-LUMBAR SACRAL [RAD] Stat Radiology 06/07/19 08:56 Ordered Medical Decision Making - Medical Decision Making 06/07/19 08:59 MDM: 78F c/o low back pain w/ radiation to the LLE x 2 days. DDX - likely disc disease vs msk; unlikely cord compression, abscess - LS XR - Decadron - Flexeril - reassess - likely dispo home w/ pcp and spine f/u; will need outpatient MRI 06/07/19 10:45 - pt feeling better s/p decadron and flexeril - XR report reviewed DC home as above Discharge - Discharge Information Problems reviewed: Yes Clinical Impression/Diagnosis: Back pain Qualifiers: Back pain location: low back pain Chronicity: chronic Back pain laterality: left Sciatica presence: unspecified whether sciatica present Qualified Code(s): M54.5 - Low back pain Condition: Stable Disposition: HOME - Admission No - Additional Discharge Information Prescriptions: Cyclobenzaprine HCl [Flexeril -] 5 mg PO TID #15 tablet Methylprednisolone [Medrol Dose Pipo] 4 mg PO ASDIR #21 tablet - Follow up/Referral Referrals: Tamiko Cox MD [Primary Care Provider] - Lakhwinder Heart MD, FAANS [Staff Physician] - - Patient Discharge Instructions Patient Printed Discharge Instructions: DI for Low Back Pain Additional Instructions: You were treated in the Emergency Department We have sent medications to your pharmacy, please pick them up and take as directed. Follow up with Neurosurgery in the next 3-5 days regarding your symptoms. We have referred you to Dr. Heart, you may call and schedule an appointment with him. Follow up with your Primary Care Doctor in the next 3-5 days regarding this Emergency Department visit. Immediately return to the nearest Emergency Department if you experience worsening, new, or concerning symptoms. - Post Discharge Activity
[2019-06-07 11:46] VITALS: BP 130/56; PULSE 67; TEMP 98
--- NOTE | 2019-06-07 12:06 | PDOC ---
Attending Attestation - Resident Resident Name: Jonn Vasquez - ED Attending Attestation I have performed the following: I have examined & evaluated the patient, The case was reviewed & discussed with the resident, I agree w/resident's findings & plan, Exceptions are as noted - HPI HPI: 06/07/19 12:05 70 years old with chronic low back discomfort secondary to known herniated disc presents with worsening of her pain worse with movement and standing no incontinence no weakness no numbness no fever no chills no recent weight loss Symptoms are moderate persistent constant worse with movement no alleviating factors started on tramadol by her PCP - Physicial Exam PE: 06/07/19 12:05 Vitals: Triage Vital signs reviewed General Appearance: No acute distress, well nourished well developed, Neck: Supple; no Nucal rigidity Chest Wall: Nontender Cardiac: Regular rate and rhythym, no murmurs, no rubs, no gallops, Lungs: Clear to auscultation bilateral, good air movement bilaterally, Abdomen: Soft, non distended, normal bowel sounds, non tender to palpation Musculoskeletal: Reproducible left lower back tenderness to palpation Extremities: Full range of motion to all extremities, no cyanosis, clubbing, or edema Skin: Warm and dry, no rashes or lesions, no rash, no petechiae Neuro: AOX3; cranial Nerves 2-12 grossly intact, strength intact to all extremities, sensation intact to all extremities, gait normal, reflexes within normal limits Psych: Normal mood, normal affect - Medical Decision Making 06/07/19 12:06 Nonfocal neurologic examination x-ray demonstrates no acute fracture dislocation status post steroids and muscle relaxant patient feels much better will follow-up with spine surgery this week Findings, need for follow-up and strict return instructions discussed with patient.
== END 2019-06-07 11:50 | disposition home or self-care (01) ==
LOC: JER 07:25
PROC: 3E023GC Introduction of Other Therapeutic Substance into Muscle, Percutaneous Approach (ICD-10-PCS; principal; 2019-06-07)
DX: M54.5 Low back pain (principal); Z91.018 Allergy to other foods; Z91.041 Radiographic dye allergy status; Z88.2 Allergy status to sulfonamides; G89.29 Other chronic pain; Z87.891 Personal history of nicotine dependence; I10 Essential (primary) hypertension; E78.00 Pure hypercholesterolemia, unspecified; I20.9 Angina pectoris, unspecified; Z87.442 Personal history of urinary calculi
CPT/HCPCS: 72100-TC-FY; 96372; 99281-25

== ENCOUNTER 2023-03-08 07:45 | Emergency (ER) | payer OTHER, MEDICARE, BC ==
[2023-03-08 08:08] VITALS: BP 152/86; PULSE 90; RESP 18; TEMP 98.6; BMI 29.2
[2023-03-08] MEDS ORDERED: MAG HYDROX/ALH/SMC/DPHA/LIDO 240 ML MOUTHWASH MM ONE (08:17)
[2023-03-08] MEDS ORDERED: SODIUM CHLORIDE 0.9% 1000 ML INFUS.BAG IV ONE (08:17)
[2023-03-08 08:44] LABS: HEMATOCRIT 36.8 % (32.4-45.2); HEMOGLOBIN 11.8 GM/dL (10.7-15.3); MCH 27.4 pg (25.7-33.7); MCHC 32.1 g/dl (32.0-36.0); MEAN CELL VOLUME 85.4 fl (80-96); PLATELET COUNT 245 10^3/uL (134-434); RBC 4.31 M/mm3 (3.60-5.2); RDW 13.7 % (11.6-15.6); WHITE BLOOD COUNT 7.2 K/mm3 (4.0-10.0)
[2023-03-08 09:11] LABS: POTASSIUM 4.4 mmol/L (3.5-5.1)
[2023-03-08 09:13] LABS: CALCIUM 8.9 mg/dL (8.5-10.1)
[2023-03-08 09:14] LABS: ALBUMIN 3.5 g/dl (3.4-5.0); BLOOD UREA NITROGEN 13.4 mg/dL (7-18)
[2023-03-08 09:18] LABS: BILIRUBIN,TOTAL 0.7 mg/dL (0.2-1); TOT PROT 6.5 g/dl (6.4-8.2)
[2023-03-08 09:21] LABS: N-TERMINAL BNP 268.4 pg/ml (5-450)
== END 2023-03-08 10:36 | disposition home or self-care (01) ==
LOC: JER 07:45
DX: R06.02 Shortness of breath (principal); J06.9 Acute upper respiratory infection, unspecified; Z20.822 Contact with and (suspected) exposure to COVID-19
CPT/HCPCS: 0241U-QW; 36415; 71045-TC-FY; 80053; 83880; 84484; 85027; 93005; 93010; 99285-25

== ENCOUNTER 2023-05-19 13:18 | Emergency (ER) | payer OTHER, MEDICARE, BC ==
[2023-05-19 13:48] VITALS: TEMP 97.9; BMI 27.2
[2023-05-19 16:41] LABS: HEMATOCRIT 36.7 % (32.4-45.2); HEMOGLOBIN 12.1 GM/dL (10.7-15.3); LYMPH % 28.2 % (8-40); MCH 27.3 pg (25.7-33.7); MCHC 32.9 g/dl (32.0-36.0); MONO % 8.3 % (3.8-10.2); NEUT % 58.5 % (42.8-82.8); PLATELET COUNT 236 10^3/uL (134-434); RBC 4.42 M/mm3 (3.60-5.2); RDW 15.5 % (11.6-15.6)
[2023-05-19 16:51] VITALS: BP 139/67; PULSE 64; RESP 12
[2023-05-19 16:57] LABS: INR 0.85 (0.83-1.09); PROTHROMBIN TIME (PATIENT) 9.9 SEC (9.7-13.0)
[2023-05-19 16:59] LABS: ACTIVATED PTT 29.9 SECONDS (25.2-36.5)
[2023-05-19 17:10] LABS: POTASSIUM 4.1 mmol/L (3.5-5.1)
[2023-05-19 17:11] LABS: CALCIUM 8.8 mg/dL (8.5-10.1)
[2023-05-19 17:12] LABS: ALBUMIN 3.6 g/dl (3.4-5.0); BLOOD UREA NITROGEN 10.5 mg/dL (7-18); MAGNESIUM 2.1 mg/dL (1.8-2.4)
[2023-05-19 17:15] LABS: CREATININE 0.8 mg/dL (0.55-1.3)
[2023-05-19 17:17] LABS: BILIRUBIN,TOTAL 0.6 mg/dL (0.2-1); TOT PROT 6.8 g/dl (6.4-8.2)
== END 2023-05-19 20:41 | disposition home or self-care (01) ==
LOC: JER 13:18
DX: R00.2 Palpitations (principal); R42 Dizziness and giddiness
CPT/HCPCS: 36415; 71046-TC-FY; 71250-TC; 80053; 83735; 84443; 84484; 85025; 85610; 85730; 93005; 93010; 99285-25

== ENCOUNTER 2023-10-01 11:36 | Emergency (ER) | payer OTHER, MEDICARE, BC ==
[2023-10-01 11:44] VITALS: BMI 29.0
[2023-10-01] MEDS ORDERED: LIDOCAINE 4% PATCH TP ONE (12:53)
[2023-10-01] MEDS: LIDOCAINE 4% PATCH TP ONE (12:59)
[2023-10-01 13:45] LABS: HEMATOCRIT 33.6 % (32.4-45.2); HEMOGLOBIN 10.9 GM/dL (10.7-15.3); MCH 27.2 pg (25.7-33.7); MCHC 32.4 g/dl (32.0-36.0); MEAN CELL VOLUME 83.7 fl (80-96); MEAN PLT VOLUME 8.2 fl (7.5-11.1); NEUT % 70.6 % (42.8-82.8); PLATELET COUNT 251 10^3/uL (134-434); RBC 4.02 M/mm3 (3.60-5.2); WHITE BLOOD COUNT 7.2 K/mm3 (4.0-10.0)
[2023-10-01 13:46] LABS: BASO % 0.6 % (0-2.0); LYMPH % 15.8 % (8-40)
[2023-10-01 13:50] LABS: POTASSIUM 4.1 mmol/L (3.5-5.1)
[2023-10-01 13:52] LABS: CALCIUM 9.1 mg/dL (8.5-10.1)
[2023-10-01 13:53] LABS: ALBUMIN 3.1 g/dl (3.4-5.0); BLOOD UREA NITROGEN 15.5 mg/dL (7-18)
[2023-10-01 13:56] LABS: CREATININE 0.7 mg/dL (0.55-1.3)
[2023-10-01 13:57] LABS: BILIRUBIN,TOTAL 0.7 mg/dL (0.2-1); TOT PROT 6.6 g/dl (6.4-8.2)
[2023-10-01] MEDS ORDERED: KETOROLAC TROMETHAMINE 15 MG/ML VIAL ONE ×2 (14:42→15:20)
[2023-10-01] MEDS: KETOROLAC TROMETHAMINE 15 MG/ML VIAL IVPUSH ONE (15:39)
[2023-10-01 17:07] LABS: EPI CELLS 25 /uL (0-25.1); HYALINE CASTS 16 /uL (0-3.1); PH,URINE 5.5 (5.0-8.0); URINE APPEARANCE CLEAR; URINE BACTERIA 315 /uL (0-1359); URINE BILIRUBIN NEGATIVE (NEGATIVE); URINE COLOR YELLOW; URINE GLUCOSE (UA) NEGATIVE (NEGATIVE); URINE KETONE TRACE (NEGATIVE); URINE LEUK ESTERASE 3+ (NEGATIVE); URINE NITRITE NEGATIVE (NEGATIVE); URINE PROTEIN 1+ (NEGATIVE); URINE RBC 39 /uL (0-23.9); URINE WBC 390 /uL (0-25.8)
[2023-10-01 18:48] VITALS: BP 128/60; PULSE 65; RESP 20; TEMP 98
[2023-10-01] MEDS ORDERED: LIDOCAINE PATCH REMOVAL MC SCH (22:00)
== END 2023-10-01 18:58 | disposition home or self-care (01) ==
LOC: JER 11:36
PROC: 3E0333Z Introduction of Anti-inflammatory into Peripheral Vein, Percutaneous Approach (ICD-10-PCS; principal; 2023-10-01)
DX: R10.9 Unspecified abdominal pain (principal); M54.50 Low back pain, unspecified; N39.0 Urinary tract infection, site not specified; N20.0 Calculus of kidney; M51.36 Other intervertebral disc degeneration, lumbar region
CPT/HCPCS: 36415; 72131-TC; 74176-TC; 80053; 81003; 83605; 83690; 85025; 86140; 87086; 99284-25

== ENCOUNTER 2024-04-05 12:57 | Emergency (ER) | payer OTHER, BC, MEDICARE ==
[2024-04-05 13:10] VITALS: BP 142/82; PULSE 83; RESP 18; TEMP 98; BMI 29.0
[2024-04-05] MEDS ORDERED: ACETAMINOPHEN INJECTION 100 ML ONE (13:56)
[2024-04-05] MEDS ORDERED: LIDOCAINE 4% PATCH TP ONE (13:56)
[2024-04-05] MEDS: ACETAMINOPHEN 1000 MG/100 ML BAG IVPB ONE (14:30)
[2024-04-05] MEDS: LIDOCAINE 4% PATCH TP ONE (14:35)
[2024-04-05 14:40] LABS: BASO % 1.2 % (0-2.0); EOS % 3.7 % (0-4.5); HEMATOCRIT 34.6 % (32.4-45.2); HEMOGLOBIN 11.3 GM/dL (10.7-15.3); LYMPH % 23.8 % (8-40); MCH 27.5 pg (25.7-33.7); MCHC 32.7 g/dl (32.0-36.0); MEAN CELL VOLUME 84.1 fl (80-96); MEAN PLT VOLUME 8.1 fl (7.5-11.1); MONO % 8.4 % (3.8-10.2); NEUT % 62.9 % (42.8-82.8); PLATELET COUNT 202 10^3/uL (134-434); RBC 4.12 M/mm3 (3.60-5.2); RDW 14.9 % (11.6-15.6); WHITE BLOOD COUNT 5.2 K/mm3 (4.0-10.0)
[2024-04-05 15:00] LABS: POTASSIUM 4.1 mmol/L (3.5-5.1)
[2024-04-05 15:02] LABS: CALCIUM 9.5 mg/dL (8.5-10.1)
[2024-04-05 15:03] LABS: ALBUMIN 3.4 g/dl (3.4-5.0); BLOOD UREA NITROGEN 20.2 mg/dL (7-18)
[2024-04-05 15:06] LABS: CREATININE 0.9 mg/dL (0.55-1.3)
[2024-04-05 15:07] LABS: BILIRUBIN,TOTAL 0.6 mg/dL (0.2-1)
[2024-04-05 15:08] LABS: TOT PROT 6.1 g/dl (6.4-8.2)
[2024-04-05] MEDS ORDERED: LIDOCAINE PATCH REMOVAL MC SCH (22:00)
== END 2024-04-05 18:44 | disposition home or self-care (01) ==
LOC: JER 12:57
PROC: 3E033NZ Introduction of Analgesics, Hypnotics, Sedatives into Peripheral Vein, Percutaneous Approach (ICD-10-PCS; principal; 2024-04-05)
DX: R06.02 Shortness of breath (principal); M54.50 Low back pain, unspecified; G89.29 Other chronic pain; R60.0 Localized edema; R26.2 Difficulty in walking, not elsewhere classified; Z20.822 Contact with and (suspected) exposure to COVID-19
CPT/HCPCS: 0241U-QW; 36415; 71045-TC-FY; 72100-TC-FY; 80053; 84484; 85025; 93005; 93010; 93971-TC; 99285-25; J0131

== ENCOUNTER 2024-04-24 16:13 | Inpatient (IN) | payer OTHER, BC, MEDICARE ==
[2024-04-24 16:24] VITALS: BMI 29.9
[2024-04-24] MEDS ORDERED: ACETAMINOPHEN INJECTION 100 ML ONE (17:20)
[2024-04-24] MEDS ORDERED: ONDANSETRON 4 MG/2 ML VIAL ONE (17:20)
[2024-04-24 18:02] LABS: BASO % 0.5 % (0-2.0); EOS % 0.3 % (0-4.5); HEMATOCRIT 38.5 % (32.4-45.2); HEMOGLOBIN 12.5 GM/dL (10.7-15.3); LYMPH % 6.3 % (8-40); MCH 27.5 pg (25.7-33.7); MCHC 32.5 g/dl (32.0-36.0); MEAN CELL VOLUME 84.5 fl (80-96); MEAN PLT VOLUME 8.3 fl (7.5-11.1); NEUT % 87.9 % (42.8-82.8); PLATELET COUNT 210 10^3/uL (134-434); RBC 4.56 M/mm3 (3.60-5.2); RDW 14.6 % (11.6-15.6); WHITE BLOOD COUNT 10.9 K/mm3 (4.0-10.0)
[2024-04-24 18:06] LABS: EPI CELLS >36 /uL (0-25.1); HYALINE CASTS 5 /uL (0-3.1); URINE APPEARANCE TURBID; URINE BILIRUBIN 1+ (NEGATIVE); URINE COLOR ORANGE; URINE GLUCOSE (UA) NEGATIVE (NEGATIVE); URINE KETONE NEGATIVE (NEGATIVE); URINE LEUK ESTERASE 2+ (NEGATIVE); URINE NITRITE POSITIVE (NEGATIVE); URINE PROTEIN 2+ (NEGATIVE); URINE RBC 1705 /uL (0-23.9); URINE UROBILINOGEN 0.2 mg/dL (0.2-1.0); URINE WBC 257 /uL (0-25.8)
[2024-04-24 18:17] LABS: POTASSIUM 5.2 mmol/L (3.5-5.1)
[2024-04-24] MEDS: ACETAMINOPHEN 1000 MG/100 ML BAG IVPB ONE (18:19)
[2024-04-24] MEDS: ONDANSETRON 4 MG/2 ML VIAL IVPB ONE (18:19)
[2024-04-24 18:21] LABS: CALCIUM 9.6 mg/dL (8.5-10.1)
[2024-04-24 18:22] LABS: ALBUMIN 3.9 g/dl (3.4-5.0)
[2024-04-24 18:25] LABS: CREATININE 1.2 mg/dL (0.55-1.3)
[2024-04-24 18:26] LABS: BILIRUBIN,TOTAL 0.8 mg/dL (0.2-1); TOT PROT 7.2 g/dl (6.4-8.2)
[2024-04-24] MEDS: LACTATED RINGERS SOLUTION 1000 ML INFUS.BAG IV ONE (18:27)
[2024-04-24] MEDS ORDERED: CEFTRIAXONE 1 GM/50 ML BAG ONE (18:28)
[2024-04-24] MEDS: CEFTRIAXONE 1 GM in DEXTROSE 5%-WATER - 100 ML IVPB ONE (18:56)
[2024-04-24 19:20] LABS: POTASSIUM 4.3 mmol/L (3.5-5.1)
[2024-04-24 19:22] LABS: ALBUMIN 3.9 g/dl (3.4-5.0); BLOOD UREA NITROGEN 23.5 mg/dL (7-18); CALCIUM 9.3 mg/dL (8.5-10.1)
[2024-04-24 19:25] LABS: CREATININE 1.3 mg/dL (0.55-1.3)
[2024-04-24 19:27] LABS: BILIRUBIN,TOTAL 0.7 mg/dL (0.2-1); TOT PROT 7.1 g/dl (6.4-8.2)
[2024-04-24] MEDS ORDERED: KETOROLAC TROMETHAMINE 15 MG/ML VIAL ONE (20:59)
[2024-04-24] MEDS: KETOROLAC TROMETHAMINE 15 MG/ML VIAL IVPUSH ONE (21:04)
[2024-04-24] MEDS ORDERED: DOCUSATE SODIUM 100 MG CAPSULE (FP) PO PRN (21:45)
[2024-04-24] MEDS ORDERED: TAMSULOSIN HCL 0.4 MG CAP ONE (23:20)
[2024-04-24] MEDS: TAMSULOSIN HCL 0.4 MG CAP PO ONE (23:28)
[2024-04-24] MEDS: DEXTROSE 5%-0.45% SALINE 1,000 ML IV SCH (23:28)
[2024-04-24] MEDS ORDERED: ACETAMINOPHEN 1000 MG/100 ML BAG IVPB PRN (23:59)
[2024-04-24] MEDS ORDERED: ONDANSETRON 4 MG/2 ML VIAL IVPUSH PRN (23:59)
[2024-04-25] MEDS ORDERED: MELATONIN 5 MG TABLETS PO PRN ×2 (01:54→16:39)
[2024-04-25] MEDS ORDERED: KETOROLAC TROMETHAMINE 15 MG/ML VIAL IVPUSH PRN ×2 (03:00→16:39)
[2024-04-25 07:53] LABS: BASO % 0.5 % (0-2.0); EOS % 0.2 % (0-4.5); HEMATOCRIT 34.1 % (32.4-45.2); HEMOGLOBIN 10.9 GM/dL (10.7-15.3); LYMPH % 11.7 % (8-40); MCH 27.3 pg (25.7-33.7); MCHC 32.1 g/dl (32.0-36.0); MEAN CELL VOLUME 85.1 fl (80-96); MEAN PLT VOLUME 8.7 fl (7.5-11.1); MONO % 12.6 % (3.8-10.2); PLATELET COUNT 168 10^3/uL (134-434); RBC 4.01 M/mm3 (3.60-5.2); RDW 14.2 % (11.6-15.6); WHITE BLOOD COUNT 8.5 K/mm3 (4.0-10.0)
[2024-04-25 07:58] LABS: INR 0.98 (0.83-1.09); PROTHROMBIN TIME (PATIENT) 11.3 SEC (9.7-13.0)
[2024-04-25 08:00] LABS: ACTIVATED PTT 27.1 SECONDS (25.2-36.5)
[2024-04-25 08:13] LABS: POTASSIUM 3.9 mmol/L (3.5-5.1)
[2024-04-25 08:18] LABS: CALCIUM 8.9 mg/dL (8.5-10.1)
[2024-04-25 08:19] LABS: BLOOD UREA NITROGEN 29.2 mg/dL (7-18)
[2024-04-25 08:22] LABS: CREATININE 1.6 mg/dL (0.55-1.3); PHOSPHOROUS 3.8 mg/dL (2.5-4.9)
[2024-04-25] MEDS: ASPIRIN COATED 81 MG TABLET.EC PO SCH (09:41)
[2024-04-25] MEDS: ISOSORBIDE MONONITRATE 30 MG TAB.SR.24H (FP) PO SCH (09:42)
[2024-04-25] MEDS: CEFTRIAXONE 2 GM in DEXTROSE 5%-WATER 100 ML IVPB SCH (15:26)
[2024-04-25] MEDS ORDERED: PROMETHAZINE HCL 25 MG/1 ML VIAL IVPB PRN ×2 (15:59→16:39)
[2024-04-25] MEDS ORDERED: LIDOCAINE HCL/PF 2% SDV 5ML VIAL ONE (16:24)
[2024-04-25] MEDS ORDERED: PROPOFOL 20 ML ONE (16:25)
[2024-04-25] MEDS ORDERED: DEXAMETHASONE SOD PHOSPHATE 4 MG/1 ML VIAL ONE (16:25)
[2024-04-25] MEDS ORDERED: ONDANSETRON 4 MG/2 ML VIAL ONE (16:25)
[2024-04-25] MEDS ORDERED: ACETAMINOPHEN 1000 MG/100 ML BAG IVPB PRN (16:39)
[2024-04-25] MEDS ORDERED: DOCUSATE SODIUM 100 MG CAPSULE (FP) PO PRN (16:39)
[2024-04-25] MEDS ORDERED: ONDANSETRON 4 MG/2 ML VIAL IVPUSH PRN (16:39)
[2024-04-25] MEDS ORDERED: MIDAZOLAM HCL 2 MG/2 ML SINGLE DOSE VIAL ONE (16:47)
[2024-04-25] MEDS: DEXTROSE 5%-0.45% SALINE 1,000 ML IV SCH (17:35)
[2024-04-25] MEDS: LACTATED RINGERS SOLUTION 1,000 ML IV SCH ×2 (17:48→17:50)
[2024-04-25] MEDS ORDERED: GABAPENTIN 100 MG CAPSULE PO SCH (22:00)
[2024-04-25] MEDS ORDERED: metoPROLOL SUCCINATE 25 MG TAB.SR.24H (FP) PO SCH (22:00)
[2024-04-25] MEDS ORDERED: ROSUVASTATIN CA 5 MG TABLET PO SCH (22:00)
[2024-04-25] MEDS: ROSUVASTATIN CA 5 MG TABLET PO SCH (22:26)
[2024-04-25] MEDS: metoPROLOL SUCCINATE 25 MG TAB.SR.24H (FP) PO SCH (22:26)
[2024-04-25] MEDS: GABAPENTIN 100 MG CAPSULE PO SCH (22:26)
[2024-04-26 07:44] LABS: PH,URINE 5.5 (5.0-8.0); URINE APPEARANCE CLOUDY; URINE BILIRUBIN NEGATIVE (NEGATIVE); URINE COLOR RED; URINE GLUCOSE (UA) NEGATIVE (NEGATIVE); URINE KETONE NEGATIVE (NEGATIVE); URINE LEUK ESTERASE 1+ (NEGATIVE); URINE NITRITE NEGATIVE (NEGATIVE); URINE PROTEIN 1+ (NEGATIVE); URINE UROBILINOGEN 0.2 mg/dL (0.2-1.0)
[2024-04-26] MEDS: ASPIRIN COATED 81 MG TABLET.EC PO SCH (09:09)
[2024-04-26] MEDS: CEFTRIAXONE 2 GM in DEXTROSE 5%-WATER 100 ML IVPB SCH (09:09)
[2024-04-26] MEDS: ISOSORBIDE MONONITRATE 30 MG TAB.SR.24H (FP) PO SCH (09:10)
[2024-04-26] MEDS: SODIUM CHLORIDE 0.45% 1,000 ML IV SCH (15:10)
[2024-04-27] MEDS: LACTOBACILLUS ACIDOPHILUS 1 TABLET PO SCH (09:52)
[2024-04-27] MEDS: POLYETHYLENE GLYCOL (HEALTHYLAX) 3350 17 GM PACKET PO SCH (09:52)
[2024-04-27] MEDS: CEFUROXIME AXETIL 250 MG TABLET PO SCH (09:52)
[2024-04-27 12:14] LABS: POTASSIUM 3.9 mmol/L (3.5-5.1)
[2024-04-27 12:15] LABS: BLOOD UREA NITROGEN 16.8 mg/dL (7-18); CALCIUM 9.1 mg/dL (8.5-10.1)
[2024-04-27 12:19] LABS: CREATININE 0.9 mg/dL (0.55-1.3)
[2024-04-28 07:19] LABS: HEMATOCRIT 33.6 % (32.4-45.2); HEMOGLOBIN 10.9 GM/dL (10.7-15.3); MCH 27.7 pg (25.7-33.7); MCHC 32.4 g/dl (32.0-36.0); MEAN CELL VOLUME 85.6 fl (80-96); MEAN PLT VOLUME 8.9 fl (7.5-11.1); PLATELET COUNT 161 10^3/uL (134-434); RBC 3.93 M/mm3 (3.60-5.2); RDW 14.3 % (11.6-15.6); WHITE BLOOD COUNT 6.5 K/mm3 (4.0-10.0)
[2024-04-28 07:35] LABS: POTASSIUM 3.9 mmol/L (3.5-5.1)
[2024-04-28 07:38] LABS: ALBUMIN 3.2 g/dl (3.4-5.0)
[2024-04-28 07:39] LABS: CALCIUM 8.9 mg/dL (8.5-10.1)
[2024-04-28 07:42] LABS: CREATININE 0.8 mg/dL (0.55-1.3)
[2024-04-28 07:44] LABS: TOT PROT 5.7 g/dl (6.4-8.2)
[2024-04-28 14:09] VITALS: BP 146/81; PULSE 70; RESP 18; TEMP 97.9
== END 2024-04-28 14:26 | disposition home or self-care (01) | DRG 661 ==
LOC: JER 16:13 → JERBED 21:40 → J6S 04-25 11:06
PROVIDERS: ADMIT Internal Medicine; ATTEND Family Medicine
PROC: BT1DZZZ Fluoroscopy of Right Kidney, Ureter and Bladder (ICD-10-PCS; 2024-04-25)
PROC: 0T768DZ Dilation of Right Ureter with Intraluminal Device, Via Natural or Artificial Opening Endoscopic (ICD-10-PCS; principal; 2024-04-25 18:00)
PROC: 0TC68ZZ Extirpation of Matter from Right Ureter, Via Natural or Artificial Opening Endoscopic (ICD-10-PCS; 2024-04-25 18:00)
DX: N13.6 Pyonephrosis (principal); I10 Essential (primary) hypertension; E78.5 Hyperlipidemia, unspecified; N17.9 Acute kidney failure, unspecified; R31.0 Gross hematuria
CPT/HCPCS: 36415; 70450-TC; 74176-TC; 76000-TC-FY; 76705-TC; 76775-TC; 80048; 80053; 81003; 82360; 83605; 83690; 83735; 84100; 84484; 85025; 85027; 85610; 85730; 86850; 86900; 86901; 87086; 88300-TC; 93005; 93010; 93880-TC; 94760; 99285-25; C2617; J0131

== ENCOUNTER 2025-02-22 07:41 | Emergency (ER) | payer OTHER, MEDICARE, BC ==
[2025-02-22 07:54] VITALS: BMI 26.9
[2025-02-22 09:17] LABS: MCHC 31.3 g/dl (32.2-35.5); MEAN CELL VOLUME 86.2 fl (79.4-94.8); MEAN PLT VOLUME 10.8 fl (9.4-12.3); RDW 14.6 % (12.5-17.0)
[2025-02-22 09:25] LABS: INR 0.98 (0.83-1.09); PROTHROMBIN TIME (PATIENT) 10.8 SEC (9.7-13.0)
[2025-02-22 09:27] LABS: ACTIVATED PTT 27.0 SECONDS (25.2-36.5)
[2025-02-22 09:47] LABS: CO2 27.0 mmol/L (21-32); GLUCOSE,RANDOM 94.0 mg/dL (74-106)
[2025-02-22 09:50] LABS: CREATININE 0.9 mg/dL (0.55-1.3); SGOT/AST 25.0 U/L (15-37); SGPT/ALT 13.0 U/L (13-61)
[2025-02-22 09:51] LABS: TOT PROT 6.5 g/dl (6.4-8.2)
[2025-02-22 09:53] LABS: ALK PHOS 48.0 U/L (45-117)
[2025-02-22 09:55] LABS: N-TERMINAL BNP 187.6 pg/ml (5-450)
[2025-02-22] MEDS ORDERED: methylPREDNISolone NA SUCC 125 MG/2 ML VIAL ONE (10:05)
[2025-02-22] MEDS: methylPREDNISolone NA SUCC 125 MG/2 ML VIAL IVPB ONE (10:15)
[2025-02-22 11:14] LABS: CO2 27.0 mmol/L (21-32); GLUCOSE,RANDOM 98.0 mg/dL (74-106)
[2025-02-22 11:17] LABS: CREATININE 0.9 mg/dL (0.55-1.3)
[2025-02-22 12:53] LABS: HCV DIAGNOSTIC IN-HOUSE W/RFLX NON-REACTIVE (NONREACTIVE)
[2025-02-22 12:57] LABS: HIV INTERPRETATION NEGATIVE (NEGATIVE)
[2025-02-22] MEDS: SODIUM CHLORIDE 500 ML IV STA (15:27)
[2025-02-22 16:00] VITALS: BP 145/85; PULSE 60; RESP 18; TEMP 97.6
== END 2025-02-22 17:20 | disposition home or self-care (01) ==
LOC: JER 07:41
PROC: 3E033GC Introduction of Other Therapeutic Substance into Peripheral Vein, Percutaneous Approach (ICD-10-PCS; principal; 2025-02-22)
PROC: 3E033GC Introduction of Other Therapeutic Substance into Peripheral Vein, Percutaneous Approach (ICD-10-PCS; 2025-02-22)
PROC: 3E0337Z Introduction of Electrolytic and Water Balance Substance into Peripheral Vein, Percutaneous Approach (ICD-10-PCS; 2025-02-22)
DX: R06.02 Shortness of breath (principal); R53.1 Weakness; R07.89 Other chest pain
CPT/HCPCS: 36415; 71045-TC-FY; 71275-TC; 80048; 80053; 83735; 83880; 84484; 85027; 85379; 85610; 85730; 86803; 87389; 87637-QW; 93005; 93010; 99285-25; Q9967